=== PATIENT | male | born 1960 | race Caucasian/White ===

== ENCOUNTER 2016-12-06 16:25 | Inpatient (IN) | payer OTHER ==
--- NOTE | ~2016-12-06 | A ---
[facility] Nutrition Therapy DATE: 12/07/16 Patient: YADIEL ANGELES Physician: BEKAH Address: [address] [place] [address] Room/Bed: [address] [place] [address], Zip: [place] [address] Admit Date: 12/06/16 Date of : 64 Height: 5 10 Weight: 162 73.6 NUTRITIONAL ASSESSMENT: REASON: 1 nutrition risk pt RE: eating poorly 56 y/o male admitted for hyponatremia PMH: alcohol abuse, pancreatitis, peptic ulcer disease Anthropometrics: Ht: 5'10" Wt: 73.6 kg (162#) BMI: 23.3 Labs: Na+ 125, K+ 2.7, Cl- 87, BUN 7, Ca++ 8.3, Mg++ 1.0, Lip 105 Meds: Protonix, Zofran, Mg, K, D5%, Thiamine, Folvite, MVI I/O & Bowel function: 960/1, last BM 12/04 Skin Integrity: Bruise (AMANDA eye, L hip), no edema noted Assessment: Chart reviewed, events noted. Visited with pt, pt had just woken up and seemed slightly confused. Pt reported 20# wt loss in 3 months, but has been gaining wt back. Pt reports having good appetite while here, unsure if pt consumed breakfast as he reported to RN that he did, and to RD that he did not. Pt did not want to try supplements. Pt had no diet questions. Dx: Unintended weight loss RT previously poor appetite, PMH AEB 20# wt loss. Intervention: 1. Healthy heart diet Monitoring, Evaluation and Goals: 1. Weight; prevent unintentional weight loss 2. Labs; WNL: electrolytes Recommendations: 1. Continue healthy heart diet. 2. Appreciate family and staff to encourage adequate intake. 3. Replete electrolytes to WNL. Pt is at a mild nutritional risk. RD will f/u per protocol. [facility] Nutrition Therapy DATE: 12/07/16 Patient: YADIEL ANGELES Physician: BEKAH Address: [facility] Room/Bed: [address] [place] [address], Zip: [place] [address] Admit Date: 12/06/16 Date of : [birth year] Height: 5 10 Weight: 162 73.6 Respectfully, Mariola Blanco, Digital Archivist Obdulia Valdez RD, LD Food and Nutritional Services [facility] cc: client file
--- NOTE | ~2016-12-06 | HP ---
Unit #: [id number] #: [id number] Patient: YDAIEL ANGELES [id number] [facility] [address] [facility]. [place], [place] [address] [id number] I MR#: [id number] NAME: YADIEL ANGELES. ROOM: 311 Age: 56 Sex: M Admission Date: 12/06/2016 : 1960 Referring Physician: Aleida Centeno M.D. Primary Care Physician: Dejuan Guevara M.D. HISTORY AND PHYSICAL CHIEF COMPLAINT Alcohol abuse, depression. HISTORY OF PRESENT ILLNESS The patient is a 56-year-old male with a past medical history of alcohol abuse, pancreatitis, and peptic ulcer disease, who presented to [facility] for evaluation of the above. 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 He was told to go to the emergency department for further evaluation due to "walking funny." Upon arrival in the emergency department at [facility], the patient's pulse was 123, blood pressure 139/103, and oxygen saturation 99% on room air. Laboratory was notable for a sodium of 125 and potassium of 2.1. Platelets are 66,000. He was given one liter of normal saline, as well as thiamine, folic acid, and multivitamin. Additionally, he received two grams of magnesium, 60 mEq of potassium, and Protonix 40 mg IV x1. The patient states that he has had a one-week history of increasing generalized weakness, productive cough, and decreased appetite. He states that he has had intermittent chest pain. He has also been intermittently short of breath. He reports crampy abdominal pain that has been intermittent in nature. He has had one bout of nonbloody emesis within the past 24 hours, as well as five to six bouts of nonbloody diarrhea. He states that his last drink was on the day prior to admission. He typically drinks a pint of vodka daily. He was transferred to [facility] for admission. PAST MEDICAL HISTORY 1. Admission to [facility] July 13-2015, for generalized weakness and alcohol withdrawal. He was in the ICU for IV Ativan. 2. Pancreatitis. 3. Peptic ulcer disease. PAST SURGICAL HISTORY Exploratory laparotomy. SOCIAL HISTORY The patient smokes a half pack of cigarettes daily. He drinks a pint of vodka daily. He works in maintenance at [employer]. His code status is a Full Code. FAMILY HISTORY Notable for his dad dying of colon cancer at the age of 59. His mother is Unit #: [id number] #: [id number] Patient: YADIEL ANGELES 86 and has arthritis. ALLERGIES No known allergies. HOME MEDICATIONS Nexium 20 mg daily. REVIEW OF SYSTEMS A complete review of systems is negative except as indicated in the History of Present Illness. The patient states that he has lost about 23 pounds over the past three months. The patient denies any suicidal or homicidal ideations. He was tearful when discussing today's date which happens to be his granddaughter's birthday. He is currently estranged from some family members. PHYSICAL EXAMINATION VITAL SIGNS: Temperature is 97.6, pulse 123, respirations 16, and blood pressure 139/103. GENERAL: Patient is a male who is awake, alert, and in no acute distress. HEENT: Head is atraumatic. Mucous membranes are moist. NECK: Supple. Trachea is midline. CARDIOVASCULAR: Regular rate and rhythm. LUNGS: Clear to auscultation bilaterally with no increased work of breathing. ABDOMEN: Soft and nontender with bowel sounds present in all four quadrants. EXTREMITIES: Nontender with no pedal edema. NEUROLOGIC: Patient is awake and alert. He follows commands. He is oriented x3. PSYCHIATRIC: Mood and affect are normal. Patient is somewhat tearful. SKIN: Skin of examined areas is warm and dry. DIAGNOSTIC STUDIES LABORATORY: Troponin is less than 0.05. Comprehensive metabolic panel notable for a sodium of 125, potassium 2.1, chloride 77, bicarb 34, glucose 126, BUN and creatinine 6 and 0.7, respectively, AST 102, alkaline phosphatase 242, and total bilirubin 3.8 with a 1.2 direct and 2.6 indirect. Lipase is 72. Alcohol level is less than 5. Complete blood count notable for platelets of 66,000. CARDIOLOGY: EKG shows sinus tachycardia with a rate of 108 beats per minute. ASSESSMENT The patient is a 56-year-old male with: 1. Hyponatremia likely secondary to dehydration and decreased oral intake, as well as alcohol abuse. The patient's sodium has been as low as 125 in the past (July 17, 2016). It is 125 today. 2. Hypokalemia. The patient received 60 mEq of potassium in the emergency department. 3. Alcohol withdrawal. The patient's last drink was on the day prior to admission. He drinks a pint of vodka daily. 4. Chest pain. Initial cardiac enzymes and EKG are negative. 5. Abdominal pain. 6. History of pancreatitis. The patient's lipase is 72 today. 7. Peptic ulcer disease. Unit #: [id number] #: [id number] Patient: YADIEL ANGELES 8. Tobacco abuse. 9. Thrombocytopenia. The patient's platelets have been as low as 20,000 on May 06, 2016. Platelets are 66,000 today. PLAN 1. Admit to intermediate level. 2. Healthy heart diet if passes bedside swallow. 3. Urine sodium and osmolality. 4. Serum osmolality. 5. Repeat BMP later this evening to follow up hyponatremia. 6. Chest x-ray for further evaluation of hyponatremia. 7. Check magnesium level. 8. Potassium/magnesium protocol. 9. Flatwork Supervisor/Social Work consult regarding alcohol abuse. 10. Librium 25 mg p.o. q.6 hours with first dose now. 11. Alcohol withdrawal protocol. 12. Serial cardiac enzymes. 13. P.r.n. Zofran. 14. Repeat labs in the morning including magnesium and lipase. 15. SCDs for DVT prophylaxis. 16. Additional workup and consultants based on above. 17. Regarding code status, the patient is a Full Code. 1. Dictated by [facility]/santino TD: 12/06/2016 17:23 JOB #: [id number] HISTORY AND PHYSICAL Page 1 of 1 X Aleida Centeno MD X HISTORY AND PHYSICAL
--- NOTE | ~2016-12-06 | CR63 ---
[facility] A Service of [facility] & [facility] RADIOLOGY TEXT RESULTS PATIENT: YADIEL ANGELES LOCATION: [facility] 311- : [birth year] UNIT #: [id number] AGE: [address]: Linda Jorgensen MD SEX: M ORDER DR: [id number] [facility] [address] [facility]. [place], [place] [address] [id number] I MR#: [id number] Acc #: [id number] NAME: YADIEL ANGELES. : 1960 SEX: M STUDY DATE/TIME: 12/06/2016 17:18 UNIT: [address] ROOM: [facility] STUDY DESCRIPTION: CR Chest 2 View Attending Physician: Janny Thao Family Referring Physician: Aleida Centeno M.D. Ordering Physician: Aleida Centeno M.D. Primary Care Physician: Dejuan Guevara M.D. MEDICAL IMAGING REPORT This report is preliminary unless electronic signature is present EXAM 2 views chest, 12/06/2016 HISTORY Shortness of air. Began today. Chest pain. FINDINGS PA and lateral radiographs of the chest are presented. Comparison 05/07/2016. No acute-appearing bony abnormality. The heart mediastinum normal in size and contour. The lungs are moderately well inflated. There is no evidence of acute infectious or inflammatory disease, pleural effusion or pneumothorax. No suspicious nodule. Dictated by... Devyn Hernandez M.D. THIS IS AN ELECTRONICALLY VERIFIED REPORT Devyn Hernandez M.D. at 12/07/2016 6:04 PM VALERIE/norma TD: 12/07/2016 06:02 JOB #: [id number] MEDICAL IMAGING REPORT Page 1 of 1 COPY
--- NOTE | ~2016-12-06 | DS ---
Unit #: [id number] #: [id number] Patient: YADIEL RAY [id number] [address] [place], [place] [address] [id number] I MR#: [id number] NAME: YADIEL RAY. ROOM: 311 Age: 56 Sex: M Admission Date: 12/06/2016 : 1960 Discharge Date: 12/07/2016 Attending Physician: Linda Jorgensen M.D. Referring Physician: Aleida Centeno M.D. Primary Care Physician: Dejuan Guevara M.D. DISCHARGE SUMMARY PRIMARY CARE PHYSICIAN Dejuan Guevara M.D. PRINCIPAL DIAGNOSES 1. Hyponatremia secondary to poor solute intake. 2. Acute alcohol withdrawal. 3. Severe hypokalemia. 4. Hypomagnesemia. 5. Hypophosphatemia. 6. Chronic alcohol abuse. 7. Chronic alcoholic pancreatitis. 8. Alcohol induced thrombocytopenia. 9. Tobaccoism. CONSULTANTS None. PROCEDURES Chest x-ray on 12/06/2016 with no acute findings. CLINICAL HISTORY AND HOSPITAL COURSE Mr. Ray is a 56-year-old male, who presents to the emergency department with increasing depression. He presented with cough and weakness. In the emergency department, he was found to be hyponatremic with a sodium level of 125. He was subsequently admitted. The patient was placed on IV fluids and sodium initially improved. IV fluids were discontinued. He was placed on salt tablets. Followup blood work was ordered, but was not done. The patient was also found to be significantly hypokalemic again secondary to poor intake of solute secondary to his alcohol abuse. This was supplemented as much as possible for the patient left AMA. The patient was placed on CIWA protocol in regard to alcohol abuse. He was having minimal signs of withdrawal when he left AMA. I will also note he is also on scheduled Librium and had been evaluated by [facility], who suggested outpatient treatment. The patient was in the process of having his electrolytes corrected when he left the hospital against medical advice. No prescriptions were given. Unit #: [id number] #: [id number] Patient: YADIEL RAY Dictated by... Linda Jorgensen M.D. [facility]/natalia TD: 12/08/2016 05:09 JOB #: [id number] DISCHARGE SUMMARY Page 1 of 1 X Linda Jorgensen MD X DISCHARGE SUMMARY
[~2016-12-06 16:25] MED LIST changes: -B-1100 MG PO; -FOLIC ACID1 MG PO; -HYDROCODON-ACE1 EAC9 PO; -K-DUR20 ME1 PO; -MAG-OX 400400 M1 PO; -MULTI-VITAMIN1 EAC1 PO; -NEXIUM20 MG PO; -NICOTINE TRANSD14 MG TOP; -NORVASC PO; -PROTONIX40 M1; -SODIUM CHLORIDE1 GM PO; -THIAMINE HCL100 M1 PO
[2016-12-06 17:25] LABS: ALBUMIN SERUM 3.3 g/dL (3.5-5.0); BILIRUBIN,TOTAL 2.8 mg/dL (0.2-2.0); BUN/CREATININE RATIO 8.57; CALCIUM SERUM 8.2 mg/dL (8.4-10.2); CREATININE SERUM 0.7 mg/dL (0.6-1.4); PROTEIN TOTAL SERUM 6.3 g/dL (6.0-8.3)
[2016-12-06 17:30] LABS: POTASSIUM 2.9 mmol/L (3.5-5.1)
[2016-12-06 17:49] LABS: %MB 1.1 % (0.0-4.0); MB 1.7 ng/ml
[2016-12-06 18:23] LABS: THYROID STIMULATING HORMONE 2.14 uIU/ml (0.34-5.60)
[2016-12-06 18:32] LABS: FREE THYROXIN (T4) 1.01 ng/dL (0.58-1.64)
[2016-12-06 19:05] LABS: CALCIUM SERUM 8.3 mg/dL (8.4-10.2); CREATININE SERUM 0.7 mg/dL (0.6-1.4)
[2016-12-06 19:12] LABS: POTASSIUM 2.7 mmol/L (3.5-5.1)
[2016-12-06 23:22] LABS: %MB 0.9 % (0.0-4.0); MB 1.3 ng/ml
[2016-12-07 01:21] LABS: URINE APPEARANCE CLEAR; URINE BLOOD NEG (NEG); URINE COLOR DK YELLOW; URINE GLUCOSE NEG (NEG); URINE KETONE TRACE (NEG); URINE LEUKOCYTE ESTERASE 1+ (NEG); URINE NITRATE POS (NEG); URINE PH 6.5 (5-8); URINE PROTEIN TRACE (NEG); URINE SPECIFIC GRAVITY 1.028 (1.003-1.035); URINE UROBILINOGEN >8.0 MG/DL (NEG)
[2016-12-07 01:24] LABS: SODIUM URINE RANDOM 65 mmol/L; URINE BACTERIA AUWI NEG (NEGATIVE); URINE SQUAMOUS EPITHELIAL CELL OCC /[HPF]
[2016-12-07 01:33] LABS: URINE BILIRUBIN POS (NEG)
[2016-12-07 03:08] LABS: OSMOLALITY,URINE 697 mOsmo/kg (250-900)
[2016-12-07 07:33] LABS: MEAN CELL VOLUME 94.7 FL (83-96); MEAN CORPUSCULAR HEMOGLOBIN 31.6 PG (28-34); MEAN CORPUSCULAR HGB CONC 33.4 g/dL (30-36); MEAN PLATELET VOLUME 8.5 FL (6.5-11.5); RED BLOOD COUNT 3.48 X10e (3.90-5.60); RED CELL DISTRIBUTION WIDTH 16.4 % (11.0-15.5); WHITE BLOOD COUNT 3.9 X10e3 (4.0-10.5)
[2016-12-07 08:13] LABS: ALBUMIN SERUM 2.9 g/dL (3.5-5.0); BILIRUBIN,TOTAL 1.4 mg/dL (0.2-2.0); CALCIUM SERUM 8.3 mg/dL (8.4-10.2); CREATININE SERUM 0.7 mg/dL (0.6-1.4); PROTEIN TOTAL SERUM 5.4 g/dL (6.0-8.3)
[2016-12-07 08:19] LABS: POTASSIUM 2.7 mmol/L (3.5-5.1)
== END 2016-12-07 13:45 | disposition left against medical advice (07) | DRG 894 ==
LOC: C3A PCU 16:25
PROVIDERS: Family Medicine
DX: F10.239 Alcohol dependence with withdrawal, unspecified (principal); E87.1 Hypo-osmolality and hyponatremia; I10 Essential (primary) hypertension; K86.1 Other chronic pancreatitis; E87.6 Hypokalemia; F17.210 Nicotine dependence, cigarettes, uncomplicated; K21.9 Gastro-esophageal reflux disease without esophagitis
CPT/HCPCS: 71020; 80048; 80053; 81003; 82550; 82553; 83690; 83735; 83930; 83935; 84100; 84300; 84439; 84443; 84484; 85027; 86592; 87806; J3411; J3475; J7042

== ENCOUNTER → 2016-12-06 | Emergency (ER) | payer OTHER ==
[~2016-12-06] MED LIST: ACETAMINOPHEN PO; AL-MAG HYDROX-S30 M1 PO; ATIVAN PO; B-1100 MG PO; BACTRIM DS TABL1 TA1 PO; BACTRIM DS TABL1 TA2 PO; BENADRYL25 MG PO; BENICAR PO; COZAAR25 MG PO; DICYCLOMINE HCL20 MG PO; FAMOTIDINE PO; FOLIC ACID1 MG PO; HYDROCODON-ACE1 EAC9 PO; HYDROCODONE-APA1 T44 PO; K-DUR20 ME1 PO; KETOPROFEN50 MG PO; LEVAQUIN PO; LIBRIUM25 M1 PO; LORTAB 5/500 TA1 TA1 PO; LOSARTAN POTASS50 MG PO; MAG-OX 400400 M1 PO; MEDROL DOSEPAK4 MG PO; MOBIC PO; MULTI VITAMIN1 EACH PO; MULTI-VITAMIN1 EAC1 PO; MULTIVITAMINS1 EAC2 PO; NASONEX17 GM; NEURONTIN300 MG PO; NEXIUM; NEXIUM PO; NEXIUM20 MG PO; NICOTINE TRANSD14 MG TOP; NORCO1 TAB 10/3 PO; NORVASC PO; OMEPRAZOLE20 M2 PO; PEPCID PO; PHENERGAN25 M1 PO; PHENERGAN25 MG PO; POTASSIUM20 MEQ/PKT PO; PROTONIX20 MG PO; PROTONIX40 M1; SIMVASTATIN10 MG PO; SIMVASTATIN20 MG PO; SODIUM CHLORIDE1 GM PO; THIAMINE HCL100 M1 PO; TOBREX5 ML OP; ULTRAM PO; VIAGRA50 MG PO; ZADITOR5 M1 OP; ZANAFLEX4 M1 PO; ZOFRAN ODT4 MG PO; ZOFRAN ODT4 MG/UDTAB PO; ZOFRAN PO; ZYRTEC PO; ZYRTEC5 M2 PO
--- NOTE | ~2016-12-06 | EKG ---
PATIENT: YADIEL ANGELES UNIT #: [id number] Ventricular Rate: 108 BPM Atrial Rate: 108 BPM P-R Interval: 148 ms QRS Duration: 80 ms Q-T Interval: 404 ms QTC Calculation(Bezet): 541 ms P [place]: 48 degrees Calculated R [place]: 55 degrees Calculated T [place]: 58 degrees Diagnosis Line: Sinus tachycardia Diagnosis Line: Otherwise normal ECG Diagnosis Line: When compared with ECG of 08-MAY-2016 19:07, Diagnosis Line: QT has lengthened Diagnosis Line: Confirmed by JESSICA DIXON MD ([id number]) on 12/06/2016 Diagnosis Line: 11:12:47 PM INTERPRETING MD: DESTINY BANSAL
[2016-12-06 09:16] LABS: BASOPHIL% 0.6 % (0-2.5); EOSINOPHIL# 0.1 X10e3 (0-0.7); EOSINOPHIL% 1.1 % (0.0-7.0); HEMATOCRIT 43.7 % (38.0-50.0); LYMPHOCYTE# 1.5 X10e3 (1.0-3.5); LYMPHOCYTE% 28.5 % (17.0-45.0); MEAN CELL VOLUME 92.8 FL (83-96); MEAN CORPUSCULAR HEMOGLOBIN 31.9 PG (28-34); MEAN CORPUSCULAR HGB CONC 34.4 g/dL (30-36); MEAN PLATELET VOLUME 8.2 FL (6.5-11.5); MONOCYTE# 0.5 X10e3 (0-1.0); MONOCYTE% 9.1 % (3.0-12.0); NEUTROPHIL# 3.1 X10e3 (1.5-7.1); NEUTROPHIL% 60.7 % (40-75); RED BLOOD COUNT 4.71 X10e (3.90-5.60); RED CELL DISTRIBUTION WIDTH 16.6 % (11.0-15.5); WHITE BLOOD COUNT 5.2 X10e3 (4.0-10.5)
[2016-12-06 09:29] LABS: POC - CKMB <1.0 ng/mL (0.0-7.9); POC - TROPONIN <0.05 ng/mL (<=0.05)
[2016-12-06 09:42] LABS: ALBUMIN SERUM 3.8 g/dL (3.5-5.0); ALKALINE PHOSPHATASE 242 U/L (32-92); ALT (SGPT) 37 U/L (10-40); AST (SGOT) 102 U/L (10-42); BILIRUBIN, DIRECT 1.2 mg/dL (0.0-0.2); BILIRUBIN,INDIRECT 2.6 mg/dL (0.0-0.9); BILIRUBIN,TOTAL 3.8 mg/dL (0.2-2.0); BLOOD UREA NITROGEN 6 mg/dL (9-23); BUN/CREATININE RATIO 8.57; CALCIUM SERUM 8.7 mg/dL (8.4-10.2); CARBON DIOXIDE 34 mmol/L (22-31); CHLORIDE 77 mmol/L (100-111); CREATININE SERUM 0.7 mg/dL (0.6-1.4); GLUCOSE FASTING 126 mg/dL (70-110); LIPASE 72 U/L (22-51); PROTEIN TOTAL SERUM 7.2 g/dL (6.0-8.3)
[2016-12-06 09:54] LABS: ALCOHOL BLOOD <5 mg/dL (0); POTASSIUM 2.1 mmol/L (3.5-5.1)
[2016-12-06 09:56] LABS: SODIUM 125 mmol/L (135-145)
[2016-12-06 10:06] LABS: DIFF IND NO; PLATELET COUNT 66 X10e3 (140-420)
== END | disposition home or self-care (01) ==
LOC: CED 08:21
PROVIDERS: Emergency Medicine
DX: R10.11 Right upper quadrant pain (principal); E87.1 Hypo-osmolality and hyponatremia; E87.6 Hypokalemia; R07.9 Chest pain, unspecified; F32.9 Major depressive disorder, single episode, unspecified; F10.20 Alcohol dependence, uncomplicated; F17.200 Nicotine dependence, unspecified, uncomplicated
CPT/HCPCS: 36415; 80048; 80076; 82553; 83690; 83874; 84484; 85025; 93005; 96374; 96375; 99285; C9113; G0480; J3475

== ENCOUNTER 2016-12-24 22:40 | Inpatient (IN) | payer OTHER ==
--- NOTE | ~2016-12-24 | CR63 ---
[facility] A Service of [facility] & [facility] RADIOLOGY TEXT RESULTS PATIENT: YADIEL ANGELES LOCATION: [facility] 305-01 : [birth year] UNIT #: [id number] AGE: [address]: Miguel Little MD SEX: M ORDER DR: [id number] [facility] [address] [facility]. [place], [place] [address] [id number] I MR#: [id number] Acc #: [id number] NAME: YADIEL ANGELES. : 1960 SEX: M STUDY DATE/TIME: 12/24/2016 23:19 UNIT: CEDOF ROOM: 44426 STUDY DESCRIPTION: CR Chest 2 View Attending Physician: Miguel Little M.D. Ordering Physician: Ramsey Samuels Aprn Primary Care Physician: No Primary Care Physician MEDICAL IMAGING REPORT This report is preliminary unless electronic signature is present EXAM PA and lateral chest. INDICATIONS Cough and chills and weakness for 2 months. COMPARISON 12/06/2016 FINDINGS PA and lateral examination of the chest upright shows a good expansion of the parenchyma with a normal distribution of the pulmonary vascularity. There is no indication of congestion, effusion, infiltrate, tumor, or nodular density. The pleural reflections and diaphragmatic contours are normal. The cardiac silhouette and mediastinal anatomy is within normal limits. IMPRESSION Normal chest. Dictated by... Vitaly Connell M.D. THIS IS AN ELECTRONICALLY VERIFIED REPORT Vitaly Connell M.D. at 12/25/2016 8:04 PM Berenice TD: 12/25/2016 14:19 JOB #: [id number] MEDICAL IMAGING REPORT Page 1 of 1 COPY
--- NOTE | ~2016-12-24 | CO ---
Unit #: [id number] #: [id number] Patient: LEONIDES RAY [id number] [facility] [address] [facility]. [place], [place] [address] [id number] I MR#: [id number] NAME: LEONIDES RAY ROOM: 305 Age: 56 Sex: M Admission Date: 12/25/2016 : 1960 Attending Physician: Nara Grimm M.D. Consultation Date: 12/27/2016 CONSULTATION REPORT REASON FOR CONSULTATION Alcohol withdrawal, alcohol abuse. HISTORY OF PRESENT ILLNESS Mr. Leonides Ray is a 56-year-old white male, seen in room 305, bed 1 on 3-A at [facility] on 12/27/2016. The patient reported that he was here for alcohol withdrawals, admitted on 12/25/2016. The patient dressed casually in hospital attire, lying comfortably. The patient currently denied any suicidal or homicidal ideation. Denied any psychotic symptom. The patient's vital signs stable; temperature 96.7, pulse 94, blood pressure 125/86, oxygen saturation 100%. The patient was admitted with alcohol abuse, history of pancreatitis. The patient was recently hospitalized and left AMA. The patient denied any other complaints. Denied any depressive symptom. PAST PSYCHIATRIC HISTORY Remarkable for history of alcohol abuse. Denied any use of any drugs. Drinks a pint of vodka daily. The patient smokes 1/2 pack of cigarettes daily. MEDICATION HISTORY The patient is currently on Librium and CIWA protocol. Please refer to [facility] for detail. FAMILY HISTORY AND SOCIAL HISTORY The patient has a good support system. No history of any abuse. No history of alcohol abuse as mentioned above. REVIEW OF SYSTEMS Complete review of system is remarkable for anxiety, nervousness, hand tremors. MENTAL STATUS EXAMINATION Vital signs, please see above. General appearance, the patient dressed casually in hospital attire. Attention span and concentration, fair. Speech, regular rate and coherent. Oriented in time, place, and person. Mood and affect were sad, dysphoric, anxious. Thought process, coherent. Thought content, the patient denied any thoughts of harming self or others or any psychotic symptom. Recent and remote memory, fair. Language, able to name object and repeat phrases. Fund of knowledge, fair. Insight and judgment, fair to slightly impaired. DIAGNOSES Psychiatric: Alcohol use disorder, severe, F10.20; mood disorder, not Unit #: [id number] #: [id number] Patient: LEONIDES RAY E otherwise specified, F32.9. Secondary diagnosis: Deferred. Medical diagnosis: Please refer to H and P. Stressors: Psychosocial stressor. ASSESSMENT/PLAN 1. Supportive psychotherapy and psychoeducation provided to the patient. 2. Educated about benefits and side effects of medication and course and prognosis of illness. 3. Advised to continue with CIWA protocol. We will continue to monitor. If needed, consider further adjustment of medication. 4. The patient was given information about [facility]-IOP program and also given crisis line #[phone]. Please feel free to call if any questions, telephone #[phone]. Dictated by... Casa Khalil/natalia TD: 12/27/2016 23:46 JOB #: [id number] CONSULTATION REPORT Page 1 of 1 X Jamie Arriola MD CONSULTATION REPORT
--- NOTE | ~2016-12-24 | HP ---
Unit #: [id number] #: [id number] Patient: YADIEL ANGELES [id number] [address] [place], [place] [address] [id number] I MR#: [id number] NAME: YADIEL ANGELES. ROOM: 28056 Age: 56 Sex: M Admission Date: 12/25/2016 : 1960 Attending Physician: Miguel Little M.D. Primary Care Physician: Primary Care Physician No HISTORY AND PHYSICAL CHIEF COMPLAINT Body ache, abdominal pain and chills. HISTORY OF PRESENT ILLNESS The patient is 56-year-old male with the past medical history of alcohol abuse, pancreatitis and peptic ulcer disease, presented to the emergency room complaining of the above symptoms since Tuesday. The patient stated the patient has not had alcohol since last Tuesday. The patient was recently seen in the hospital on 12/06/2016 and left AMA on the next day stating due to the pain medications. However, the patient stated that he wants to stay at this time and follow with the treatment protocol. The patient was found to have a severe hyponatremia and hypokalemia with a sodium of 125 and potassium of 2.8. The patient is being admitted for the above reasons. The patient also complains of nausea, vomiting and diarrhea since Tuesday. PAST MEDICAL HISTORY 1. History of generalized weakness and alcohol withdrawal. 2. Pancreatitis. 3. Peptic ulcer disease. PAST SURGICAL HISTORY Exploratory laparotomy. HOME MEDICATIONS Nexium 20 mg daily. ALLERGIES No known drug allergies. SOCIAL HISTORY The patient smokes one-half pack of cigarettes daily. He drinks a pint of vodka daily. 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 FAMILY HISTORY Notable for his father dying from colon cancer at age 59. His mother is 84 and has arthritis. REVIEW OF SYSTEMS A 14-point review of systems performed and only pertinent positive findings as described above, remaining are negative. PHYSICAL EXAMINATION VITAL SIGNS: Temperature 98.4, pulse 96, respiratory rate 16, blood Unit #: [id number] #: [id number] Patient: YADIEL ANGELES pressure 126/82. GENERAL: Patient is lying on the bed not in acute distress. HEENT: Atraumatic, normocephalic. Pupils equal, round, and reactive to light and accommodation. Extraocular movements are intact. Dry mucous membrane. NECK: Supple. No JVD. LUNGS: Decreased air entry at the bases. HEART: Regular rate and rhythm. ABDOMEN: Soft, positive bowel sounds. EXTREMITIES: No cyanosis, no clubbing. NEUROLOGIC: The patient has a fine tremor shakes a bit at rest. DIAGNOSTIC STUDIES LABORATORY: Glucose 85, BUN less than 5, creatinine 0.6, sodium 125, potassium 2.8, chloride 85, bicarb 26, calcium 7.9, phosphorus 2, magnesium 1, AST 75, ALT 33, alkaline phosphatase 137. Lipase 105. WBC 5.4, hemoglobin 14.6, hematocrit 43.1, platelets 62. ASSESSMENT AND PLAN 1. Alcohol withdrawal. 2. Hypokalemia. 3. Hyponatremia. PLAN 1. Admit patient to inpatient with telemetry. 2. Patient will continue with IV fluids at 75 mL per hour with 20 mEq of potassium. 3. Continue with 2-gram sodium diet. 4. Continue with CIWA protocol and continue with folic acid and thiamine. 5. Will have the psychiatric consult for the detoxification. 6. Further recommendations will follow as more lab results become available. Dictated by Casa Fuentes TD: 12/25/2016 14:33 JOB #: [id number] HISTORY AND PHYSICAL Page 1 of 1 X X HISTORY AND PHYSICAL
--- NOTE | ~2016-12-24 | EKG ---
PATIENT: YADIEL ANGELES UNIT #: [id number] Ventricular Rate: 104 BPM Atrial Rate: 104 BPM P-R Interval: 150 ms QRS Duration: 70 ms Q-T Interval: 404 ms QTC Calculation(Bezet): 531 ms P [place]: 65 degrees Calculated R [place]: 69 degrees Calculated T [place]: 69 degrees Diagnosis Line: Sinus tachycardia Diagnosis Line: Poor R wave progression questionable lead position Diagnosis Line: or body habitus Diagnosis Line: Prolonged QT Diagnosis Line: Abnormal ECG Diagnosis Line: When compared with ECG of 06-DEC-2016 08:57, Diagnosis Line: Septal infarct is now Present Diagnosis Line: Confirmed by YAYO NIEVES MD ([id number]) on 12/26/2016 Diagnosis Line: 7:11:22 AM INTERPRETING MD: LIZBETH BANSAL
--- NOTE | ~2016-12-24 | DS ---
Unit #: [id number] #: [id number] Patient: YADIEL ANGELES [id number] [address] [place], [place] [address] [id number] I MR#: [id number] NAME: YADIEL ANGELES. ROOM: 305 Age: 56 Sex: M Admission Date: 12/25/2016 : 1960 Discharge Date: Attending Physician: Nara Grimm M.D. Primary Care Physician: No Primary Care Physician DISCHARGE SUMMARY DISCHARGE DIAGNOSES 1. Acute alcohol dependence with alcohol withdrawal and delirium tremens. 2. Severe hyponatremia, acute on chronic secondary to alcohol abuse. 3. Hypokalemia. 4. Hypomagnesemia. 5. Confusion, occasionally, most likely secondary to alcohol, toxic metabolic encephalopathy present on admission. 6. According to family, has chronic occasional confusion. 7. Chronic alcohol hepatitis. 8. Alcohol induced thrombocytopenia. 9. Smoking. 10. Hyperphosphatemia. CONSULTANTS Dr. Arriola. PROCEDURES None. DIAGNOSTIC STUDIES LABORATORY DATA: Sodium 124, potassium 4.0, creatinine 0.5, magnesium 1.4, calcium 8.5, blood cultures negative. WBC 5.7, hemoglobin 12.1, platelets 50. IMAGING STUDIES: Chest x-ray - no acute infiltrates. ALLERGIES None. DISCHARGE MEDICATIONS 1. Magnesium oxide 400 mg p.o. 3 times daily. 2. Thiamine 100 daily. 3. Folic acid 1 mg daily. 4. Sodium tablets 1 g p.o. 3 times daily. HOSPITAL COURSE 56-year-old admitted because of body pains. Acute alcohol dependent with withdrawal and delirium tremens: Patient was started on alcohol withdrawal protocol. He was on Librium. Currently he is not in delirium tremens. He is being discharged. Confusion: Occasional, secondary to toxic metabolic encephalopathy from Unit #: [id number] #: [id number] Patient: YADIEL ANGELES alcohol. Advised to quit. He understands the instructions, present on admission. Acute on chronic hyponatremia from alcohol. Patient received fluid restriction and sodium tablets. Currently sodium 124, which is chronically low. Hypomagnesium: Replace with IV and p.o. magnesium. I will give prescription. Hypokalemia: Replace with p.o. potassium. Discharge home after IV magnesium today. Follow with family physician in one week time. Dictated by... Casa Estrada TD: 12/29/2016 12:06 JOB #: [id number] DISCHARGE SUMMARY Page 1 of 1 X Nara Grimm MD X DISCHARGE SUMMARY
--- NOTE | ~2016-12-24 | CO ---
Unit #: [id number] #: [id number] Patient: LEONIDES ANGELES [id number] [facility] [address] [place], [place] [address] [id number] I MR#: [id number] NAME: LEONIDES ANGELES ROOM: 305 Age: 56 Sex: M Admission Date: 12/25/2016 : 1960 Attending Physician: Nara Grimm M.D. Consultation Date: 12/28/2016 CONSULTATION REPORT REASON FOR CONSULTATION Followup. HISTORY OF PRESENT ILLNESS Mr. Leonides Angeles is a 56-year-old male, seen on 12/28/2016 in room 305, bed 1 at [facility]. The patient is still having withdrawal from alcohol, anxious, nervous, but reports feeling better. The patient currently denied any suicidal or homicidal ideation. Denied any psychotic symptom. The patient's vital signs; temperature 98.1, pulse 100, respirations 20, blood pressure 122/86, and oxygen saturation 100%. REVIEW OF SYSTEMS Complete review of systems is unremarkable. MENTAL STATUS EXAMINATION General appearance; the patient dressed casually. Attention span and concentration, fair. Speech; regular rate, coherent. Mood and affect, labile. Thought process, circumstantial. Thought content; the patient denied any thoughts of harming self or others. Recent and remote memory, fair. Language, intact. Fund of knowledge, fair. Insight and judgment, fair to slightly impaired. DIAGNOSES Psychiatric: Alcohol use disorder, severe, F10.20; mood disorder, not otherwise specified, F32.9. ASSESSMENT AND PLAN 1. Supportive psychotherapy and psychoeducation were provided to the patient. 2. Educated about benefits and side effects of medication and course and prognosis of illness. 3. Advised to continue with current [facility] protocol with a plan for the patient to follow up at [facility] after the patient is medically stable. Please feel free to call if any questions, telephone #[phone]. Dictated by... Jamie Arriola M.D. TESHA/natalia TD: 12/30/2016 03:04 JOB #: [id number] Unit #: [id number] #: [id number] Patient: LEONIDES ANGELES CONSULTATION REPORT Page 1 of 1 X Jamie Arriola MD CONSULTATION REPORT
[2016-12-24 21:30] LABS: INFLUENZA A NEG (NEG); INFLUENZA B NEG (NEG)
[2016-12-24 23:48] LABS: BASOPHIL% 0.3 % (0-2.5); EOSINOPHIL% 0.3 % (0.0-7.0); HEMATOCRIT 43.1 % (38.0-50.0); HEMOGLOBIN 14.6 gm/dL (13.0-16.0); LYMPHOCYTE# 1.7 X10e3 (1.0-3.5); LYMPHOCYTE% 32.4 % (17.0-45.0); MEAN CORPUSCULAR HEMOGLOBIN 31.4 PG (28-34); MEAN CORPUSCULAR HGB CONC 33.8 g/dL (30-36); MEAN PLATELET VOLUME 7.7 FL (6.5-11.5); MONOCYTE# 0.5 X10e3 (0-1.0); MONOCYTE% 9.6 % (3.0-12.0); NEUTROPHIL# 3.1 X10e3 (1.5-7.1); NEUTROPHIL% 57.4 % (40-75); RED BLOOD COUNT 4.63 X10e (3.90-5.60); RED CELL DISTRIBUTION WIDTH 17.3 % (11.0-15.5); WHITE BLOOD COUNT 5.4 X10e3 (4.0-10.5)
[2016-12-24 23:59] LABS: DIFF IND YES; PLATELET COUNT 62 X10e3 (140-420)
[2016-12-25 00:01] LABS: ANISOCYTOSIS MOD; PLATELET ESTIMATE DECREASED (NORMAL)
[2016-12-25 00:22] LABS: CALCIUM SERUM 7.9 mg/dL (8.4-10.2); CARBON DIOXIDE 26 mmol/L (22-31); CHLORIDE 85 mmol/L (100-111); CREATININE SERUM 0.6 mg/dL (0.6-1.4); GLUCOSE FASTING 85 mg/dL (70-110)
[2016-12-25 00:35] LABS: BLOOD UREA NITROGEN <5 mg/dL (9-23); BUN/CREATININE RATIO 8.33; POTASSIUM 2.8 mmol/L (3.5-5.1); SODIUM 125 mmol/L (135-145)
[2016-12-25 00:56] LABS: ALBUMIN SERUM 3.4 g/dL (3.5-5.0); BILIRUBIN, DIRECT 0.5 mg/dL (0.0-0.2); BILIRUBIN,INDIRECT 1.4 mg/dL (0.0-0.9); BILIRUBIN,TOTAL 1.9 mg/dL (0.2-2.0); PROTEIN TOTAL SERUM 6.3 g/dL (6.0-8.3)
[2016-12-25 01:14] LABS: POC - CKMB <1.0 ng/mL (0.0-7.9); POC - TROPONIN <0.05 ng/mL (<=0.05)
[2016-12-25] MEDS ORDERED: NEXIUM PO (01:29)
[2016-12-25 13:11] LABS: CALCIUM SERUM 7.6 mg/dL (8.4-10.2); CARBON DIOXIDE 28 mmol/L (22-31); CHLORIDE 87 mmol/L (100-111); CREATININE SERUM 0.5 mg/dL (0.6-1.4); GLOM FILT RATE Estimated 122.9 mL/min (>60); GLUCOSE FASTING 100 mg/dL (70-110); POTASSIUM 3.5 mmol/L (3.5-5.1)
[2016-12-25 13:32] LABS: BLOOD UREA NITROGEN <5 mg/dL (9-23); MAGNESIUM 0.7 mg/dL (1.6-3.0); SODIUM 125 mmol/L (135-145)
[2016-12-26 06:12] LABS: MEAN CELL VOLUME 94.6 FL (83-96); MEAN CORPUSCULAR HEMOGLOBIN 31.2 PG (28-34); MEAN PLATELET VOLUME 8.2 FL (6.5-11.5); RED BLOOD COUNT 3.91 X10e (3.90-5.60); RED CELL DISTRIBUTION WIDTH 18.1 % (11.0-15.5); WHITE BLOOD COUNT 4.1 X10e3 (4.0-10.5)
[2016-12-26 06:15] LABS: HEMOGLOBIN 12.2 gm/dL (13.0-16.0)
[2016-12-26 06:49] LABS: CALCIUM SERUM 7.7 mg/dL (8.4-10.2); CARBON DIOXIDE 27 mmol/L (22-31); CHLORIDE 91 mmol/L (100-111); CREATININE SERUM 0.5 mg/dL (0.6-1.4); GLOM FILT RATE Estimated 122.9 mL/min (>60); GLUCOSE FASTING 114 mg/dL (70-110); MAGNESIUM 1.1 mg/dL (1.6-3.0); POTASSIUM 3.2 mmol/L (3.5-5.1); SODIUM 126 mmol/L (135-145)
[2016-12-26 06:55] LABS: BLOOD UREA NITROGEN <5 mg/dL (9-23)
[2016-12-27 06:17] LABS: BLOOD UREA NITROGEN <5 mg/dL (9-23); CALCIUM SERUM 7.5 mg/dL (8.4-10.2); CARBON DIOXIDE 22 mmol/L (22-31); CHLORIDE 99 mmol/L (100-111); CREATININE SERUM 0.5 mg/dL (0.6-1.4); GLOM FILT RATE Estimated 122.9 mL/min (>60); GLUCOSE FASTING 127 mg/dL (70-110); MAGNESIUM 1.4 mg/dL (1.6-3.0); POTASSIUM 3.7 mmol/L (3.5-5.1); SODIUM 126 mmol/L (135-145)
[2016-12-27 16:10] LABS: HEMATOCRIT 38.4 % (38.0-50.0); HEMOGLOBIN 12.6 gm/dL (13.0-16.0); MEAN CELL VOLUME 96.8 FL (83-96); MEAN CORPUSCULAR HEMOGLOBIN 31.9 PG (28-34); MEAN PLATELET VOLUME 8.6 FL (6.5-11.5); RED BLOOD COUNT 3.96 X10e (3.90-5.60); RED CELL DISTRIBUTION WIDTH 17.9 % (11.0-15.5); WHITE BLOOD COUNT 4.4 X10e3 (4.0-10.5)
[2016-12-28 05:53] LABS: HEMATOCRIT 36.2 % (38.0-50.0); HEMOGLOBIN 12.1 gm/dL (13.0-16.0); MEAN CELL VOLUME 94.7 FL (83-96); MEAN CORPUSCULAR HEMOGLOBIN 31.7 PG (28-34); MEAN CORPUSCULAR HGB CONC 33.5 g/dL (30-36); MEAN PLATELET VOLUME 8.1 FL (6.5-11.5); RED BLOOD COUNT 3.82 X10e (3.90-5.60); RED CELL DISTRIBUTION WIDTH 18.3 % (11.0-15.5); WHITE BLOOD COUNT 5.7 X10e3 (4.0-10.5)
[2016-12-28 07:22] LABS: BLOOD UREA NITROGEN <5 mg/dL (9-23); CALCIUM SERUM 8.1 mg/dL (8.4-10.2); CARBON DIOXIDE 23 mmol/L (22-31); CHLORIDE 96 mmol/L (100-111); CREATININE SERUM 0.4 mg/dL (0.6-1.4); GLOM FILT RATE Estimated 134.7 mL/min (>60); GLUCOSE FASTING 106 mg/dL (70-110); MAGNESIUM 1.6 mg/dL (1.6-3.0)
[2016-12-28 07:23] LABS: SODIUM 124 mmol/L (135-145)
[2016-12-29 07:05] LABS: CALCIUM SERUM 8.5 mg/dL (8.4-10.2); CREATININE SERUM 0.5 mg/dL (0.6-1.4); GLOM FILT RATE Estimated 122.9 mL/min (>60); MAGNESIUM 1.4 mg/dL (1.6-3.0)
[2016-12-29] MEDS ORDERED: MAG-OX 400400 M1 PO (11:27)
[2016-12-29] MEDS ORDERED: FOLIC ACID1 MG PO (11:28)
[2016-12-29] MEDS ORDERED: THIAMINE HCL100 M1 PO (11:28)
[2016-12-29] MEDS ORDERED: SODIUM CHLORIDE1 GM PO (11:28)
== END 2016-12-29 18:40 | disposition home or self-care (01) | DRG 896 ==
LOC: CED 22:40 → CEDOF 12-25 01:25 → C3A PCU 12-25 19:49
PROVIDERS: Internal Medicine; Nurse Practitioner Family
DX: F10.231 Alcohol dependence with withdrawal delirium (principal); G92 Toxic encephalopathy; D69.6 Thrombocytopenia, unspecified; E83.51 Hypocalcemia; E83.39 Other disorders of phosphorus metabolism; F39 Unspecified mood [affective] disorder; K70.10 Alcoholic hepatitis without ascites; E87.1 Hypo-osmolality and hyponatremia; K29.70 Gastritis, unspecified, without bleeding; E87.6 Hypokalemia; R11.2 Nausea with vomiting, unspecified; F17.210 Nicotine dependence, cigarettes, uncomplicated
CPT/HCPCS: 36415; 71020; 80048; 80076; 82553; 83735; 84132; 84484; 85025; 85027; 87040; 87651; 87804; 93005; 96361; 96374; 99285; J1885; J2405; J3411; J3475; J7042

== ENCOUNTER 2017-01-11 18:56 | Inpatient (IN) | payer OTHER ==
--- NOTE | ~2017-01-11 | HP ---
Unit #: [id number] #: [id number] Patient: YADIEL ANGELES [id number] [address] [place], [place] [address] [id number] MR#: [id number] NAME: YADIEL ANGELES. ROOM: Age: 56 Sex: M Admission Date: 01/11/2017 : 1960 Attending Physician: Rolan Thornton M.D. Primary Care Physician: No Primary Care Physician HISTORY AND PHYSICAL CHIEF COMPLAINT Nausea, vomiting, diarrhea with electrolytes abnormalities. HISTORY This 56-year-old male with history of alcohol abuse, peptic ulcer disease and pancreatitis, is admitted for nausea, vomiting, diarrhea and electrolyte abnormalities. Patient drinks a pint a day of alcohol, and his last drink was two days ago. States that over the past two days he has developed intractable dark diarrhea, then last evening began to experience nonbloody nausea and vomiting with chest and abdominal pain, sweats and chills. He presents to this emergency department where labs show hyponatremia and hypokalemia. He was bolused with a liter of saline, given Zofran, GI cocktail, 40 mEq of potassium. He is continuing to experience generalized abdominal discomfort, perhaps more so in the epigastric region. PAST MEDICAL HISTORY 1. Alcohol abuse with previous admissions for alcohol withdrawal. 2. History of pancreatitis. 3. Peptic ulcer disease requiring exploratory lap. ALLERGIES None. HOME MEDICATIONS Nexium. FAMILY HISTORY Colon cancer, arthritis. SOCIAL HISTORY The patient lives alone. He drinks one pint of liquor daily. His last drink was two days ago and he would like to stop drinking. He smokes one half pack per day of tobacco, denies illicit drug use. REVIEW OF SYSTEMS Review of systems is notable for nausea, vomiting, diarrhea, sweats, chills, abdominal and chest pain, alcohol abuse, pancreatitis, peptic ulcer disease, tobacco abuse and exploratory lap. All other systems were reviewed and otherwise negative. PHYSICAL EXAMINATION Unit #: [id number] #: [id number] Patient: YADIEL ANGELES GENERAL: A 56-year-old mildly uncomfortable male. VITAL SIGNS: Temperature 98. Pulse 127. Respirations 18. Blood pressure 140/79. O2 saturation 100% on room air. HEENT: Eyes PERRLAA, extraocular muscles are intact. Patient does have some horizontal nystagmus noted. Pharynx is benign. NECK: Supple, without adenopathy or thyromegaly. CHEST: Clear. CARDIAC: Slightly tachy S1 and S2, without murmur. ABDOMEN: Bowel sounds are present. The patient has mild generalized abdominal tenderness, perhaps more so in the epigastric region. Perhaps he has a little bit of hepatomegaly on exam as well. No masses. ANO-RECTAL EXAMINATION: No masses. Brown stool which is trace heme positive. EXTREMITIES: Without cyanosis, clubbing or edema. Pedal pulses are present but diminished. NEUROLOGIC EXAM: Patient is awake, alert, oriented. His cranial nerves are intact. He has mild horizontal nystagmus, is mildly tremulous. DIAGNOSTIC STUDIES LABORATORY: On admission labs hematocrit is 41.8, normal white count, platelet count is 87 which is improved; SMA-12: Glucose 119, sodium 121 (of note patient usually is hyponatremic but this is lower than usual), potassium 2.9, chloride 80, bilirubin 2.9, has been intermittently elevated in the past as well, most of this is indirect, AST is 51, alkaline phosphatase 158, normal amylase and lipase. Alcohol less than 5. ASSESSMENT 1. Likely gastroenteritis although the patient's nausea, vomiting, diarrhea may be related to his alcohol abuse as well. 2. Hyponatremia, hypokalemia secondary to gastroenteritis and ongoing alcohol abuse. Of note patient is chronically hyponatremic but this is worse than usual. 3. Alcohol abuse with alcohol-induced liver disease. 4. Chronic thrombocytopenia secondary to alcohol abuse. 5. Peptic ulcer disease requiring exploratory laparotomy. 6. History of pancreatitis with normal amylase and lipase currently. 7. Tobacco abuse. PLANS 1. IV fluids and supportive treatment. 2. Correct electrolytes, obtain magnesium level. 3. Benzos and vitamins. 4. Check acute abdominal series, EKG, cardiac enzymes. 5. SCDs for DVT prophylaxis. 6. Stool cultures. Dictated by Aminah Cole M.D. AML/cf TD: 01/11/2017 21:22 JOB #: [id number] Unit #: [id number] #: [id number] Patient: YADIEL ANGELES HISTORY AND PHYSICAL Page 1 of 1 X Aminah Cole MD HISTORY AND PHYSICAL
--- NOTE | ~2017-01-11 | EKG ---
PATIENT: YADIEL ANGELSE UNIT #: [id number] Ventricular Rate: 89 BPM Atrial Rate: 89 BPM P-R Interval: 148 ms QRS Duration: 78 ms Q-T Interval: 414 ms QTC Calculation(Bezet): 503 ms P [place]: 57 degrees Calculated R [place]: 54 degrees Calculated T [place]: 61 degrees Diagnosis Line: Normal sinus rhythm Diagnosis Line: Prolonged QT Diagnosis Line: Abnormal ECG Diagnosis Line: When compared with ECG of 11-JAN-2017 23:34, Diagnosis Line: (unconfirmed) Diagnosis Line: Criteria for Septal infarct are no longer Present Diagnosis Line: Confirmed by JESSICA DIXON MD ([id number]) on 01/12/2017 Diagnosis Line: 9:44:10 AM INTERPRETING MD: DESTINY BANSAL
--- NOTE | ~2017-01-11 | DS ---
Unit #: [id number] #: [id number] Patient: YADIEL ANGELES [id number] [address] [address] [id number] I MR#: [id number] NAME: YADIEL ANGELES ROOM: [facility] Age: 56 Sex: M Admission Date: 01/11/2017 : 1960 Discharge Date: 01/14/2017 Attending Physician: Nara Grimm M.D. Primary Care Physician: No Primary Care Physician DISCHARGE SUMMARY DISCHARGE DIAGNOSES 1. Viral gastroenteritis. 2. Acute on chronic hyponatremia secondary to alcohol abuse. 3. Hypokalemia. 4. Hypomagnesemia. 5. Alcohol dependence. 6. Alcohol induced liver disease. 7. Chronic thrombocytopenia. 8. Peptic ulcer disease. 9. Smoking. 10. History of pancreatitis. 11. Metabolic acidosis. 12. Hypophosphatemia. CONSULTANTS None. PROCEDURES PERFORMED None. DIAGNOSTIC DATA LABORATORY: Sodium 125, potassium 3.9, glucose 131, creatinine 0.6, white blood cell count 5.3, hemoglobin 11.2, platelets 59. Urinalysis negative. Troponins negative. ALLERGIES No known drug allergies. DISCHARGE MEDICATIONS 1. Magnesium oxide 400 mg p.o. t.i.d. 2. Nicotine 14 mg transdermal daily. 3. Multivitamin 1 tablet daily. 4. Potassium 40 mEq p.o. daily. 5. Sodium chloride tablets 1 g p.o. t.i.d. 6. Thiamine 100 mg daily. HOSPITAL COURSE The patient is a 56-year-old admitted because of abdominal pain and diarrhea. Acute viral gastroenteritis: Resolved. [id number] hyponatremia: Secondary to alcohol abuse. The patient was fluid restriction and sodium chloride tablets. Currently sodium is Unit #: [id number] #: [id number] Patient: YADIEL ANGELES 125, which is his baseline. Continue fluid restriction at 1500 mL per day at home. I gave prescription for sodium chloride. Alcohol dependence: Advised to quit. Hypokalemia and hypomagnesemia: Replaced. I am going to give prescriptions for both potassium and magnesium. Smoking: Advised to quit. I gave nicotine patch. Alcohol dependence: The patient received alcohol withdrawal protocol and Librium. Currently he is alert and oriented times three. No hallucinations. He does not need any medications to take home. He needs to follow with a psychiatrist as an outpatient. credit review manager to arrange it. DISPOSITION Discharge home. FOLLOWUP Follow up with family physician in one week time. Dictated by... Casa Estrada/michael TD: 01/14/2017 11:30 JOB #: [id number] DISCHARGE SUMMARY Page 1 of 1 X Nara Grimm MD X DISCHARGE SUMMARY
--- NOTE | ~2017-01-11 | EKG ---
PATIENT: YADIEL ANGELES UNIT #: [id number] Ventricular Rate: 95 BPM Atrial Rate: 95 BPM P-R Interval: 142 ms QRS Duration: 70 ms Q-T Interval: 412 ms QTC Calculation(Bezet): 517 ms P [place]: 60 degrees Calculated R [place]: 62 degrees Calculated T [place]: 76 degrees Diagnosis Line: Normal sinus rhythm Diagnosis Line: Early repolarization Prolonged QT Diagnosis Line: Abnormal ECG Diagnosis Line: When compared with ECG of 25-DEC-2016 02:07, Diagnosis Line: No significant change was found Diagnosis Line: Confirmed by JESSICA DIXON MD ([id number]) on 01/12/2017 Diagnosis Line: 9:41:56 AM INTERPRETING MD: DESTINY BANSAL
--- NOTE | ~2017-01-11 | CR2 ---
[facility] A Service of [facility] RADIOLOGY TEXT RESULTS PATIENT: YADIEL ANGELES LOCATION: [facility] 570-01 : [birth year] UNIT #: [id number] AGE: [address]: Nara Grimm MD SEX: M ORDER DR: [id number] [facility] [address]. [place], [place] [address] [id number] I MR#: [id number] Acc #: [id number] NAME: YADIEL ANGELES. : 1960 SEX: M STUDY DATE/TIME: 01/11/2017 22:19 UNIT: [facility] ROOM: [facility] STUDY DESCRIPTION: CR Abdomen Acute Series Attending Physician: Aminah Cole M.D. Ordering Physician: Rolna Thornton M.D. Primary Care Physician: Primary Care Physician No MEDICAL IMAGING REPORT This report is preliminary unless electronic signature is present EXAM Acute abdominal series COMPARISON January 13, 2016. INDICATIONS 56-year-old male with generalized abdominal pain, emesis and diarrhea for 1 day. FINDINGS Cardiomediastinal silhouette is within normal limits. There are degenerative changes in the bilateral lower cervical spine. No evidence of acute fracture, pleural effusion or acute airspace disease. Diffuse spondylosis of the thoracic spine. Degenerative changes of both acromioclavicular joints. No free subdiaphragmatic air. There is mild gaseous distension of the splenic flexure of the colon. No evidence of high-grade mechanical bowel obstruction. Gas is seen in the lumen of the sigmoid colon. There are pelvic phleboliths on the left. There is levoscoliosis of the lumbar spine. There is grossly stable degenerative disc change at L3-L4. There is also degenerative disc height loss at L4-L5. IMPRESSION 1. No evidence of bowel obstruction or perforation. 2. No acute radiographic abnormality of the chest. Dictated by... Ezekiel Verdugo M.D. THIS IS AN ELECTRONICALLY VERIFIED REPORT Ezekiel Verdugo M.D. at 01/12/2017 4:20 PM [facility] A Service of [facility] RADIOLOGY TEXT RESULTS PATIENT: YADIEL ANGELES LOCATION: [facility] 570-01 : [birth year] UNIT #: [id number] AGE: [address]: Nara Grimm MD SEX: M ORDER DR: Mercedez TD: 01/12/2017 02:25 JOB #: [id number] MEDICAL IMAGING REPORT Page 1 of 1 COPY
[2017-01-11 18:34] LABS: BASOPHIL% 0.2 % (0-2.5); EOSINOPHIL% 0.1 % (0.0-7.0); HEMATOCRIT 41.8 % (38.0-50.0); HEMOGLOBIN 14.1 gm/dL (13.0-16.0); LYMPHOCYTE% 11.8 % (17.0-45.0); MEAN CELL VOLUME 93.1 FL (83-96); MEAN CORPUSCULAR HEMOGLOBIN 31.4 PG (28-34); MEAN CORPUSCULAR HGB CONC 33.7 g/dL (30-36); MONOCYTE# 0.4 X10e3 (0-1.0); MONOCYTE% 5.1 % (3.0-12.0); NEUTROPHIL% 82.8 % (40-75); RED BLOOD COUNT 4.49 X10e (3.90-5.60); RED CELL DISTRIBUTION WIDTH 16.7 % (11.0-15.5); WHITE BLOOD COUNT 8.5 X10e3 (4.0-10.5)
[2017-01-11 18:55] LABS: DIFF IND NO; PLATELET COUNT 87 X10e3 (140-420)
[~2017-01-11 18:56] MED LIST changes: +FOLIC ACID1 MG PO; +MAG-OX 400400 M1 PO; +SODIUM CHLORIDE1 GM PO; +THIAMINE HCL100 M1 PO
[2017-01-11 19:00] LABS: ALBUMIN SERUM 4.1 g/dL (3.5-5.0); ALKALINE PHOSPHATASE 158 U/L (32-92); ALT (SGPT) 37 U/L (10-40); AMYLASE 25 U/L (0-46); AST (SGOT) 51 U/L (10-42); BILIRUBIN, DIRECT 0.6 mg/dL (0.0-0.2); BILIRUBIN,INDIRECT 2.3 mg/dL (0.0-0.9); BILIRUBIN,TOTAL 2.9 mg/dL (0.2-2.0); BLOOD UREA NITROGEN 7 mg/dL (9-23); BUN/CREATININE RATIO 8.75; CALCIUM SERUM 9.2 mg/dL (8.4-10.2); CARBON DIOXIDE 28 mmol/L (22-31); CHLORIDE 80 mmol/L (100-111); CREATININE SERUM 0.8 mg/dL (0.6-1.4); GLOM FILT RATE Estimated 101.3 mL/min (>60); GLUCOSE FASTING 119 mg/dL (70-110); LIPASE 49 U/L (22-51); PROTEIN TOTAL SERUM 7.5 g/dL (6.0-8.3)
[2017-01-11 19:03] LABS: ALCOHOL BLOOD <5 mg/dL (0); POTASSIUM 2.9 mmol/L (3.5-5.1); SODIUM 121 mmol/L (135-145)
[2017-01-12 00:50] LABS: HEMATOCRIT 37.8 % (38.0-50.0); HEMOGLOBIN 12.6 gm/dL (13.0-16.0); MEAN CELL VOLUME 93.3 FL (83-96); MEAN CORPUSCULAR HEMOGLOBIN 31.1 PG (28-34); MEAN CORPUSCULAR HGB CONC 33.3 g/dL (30-36); MEAN PLATELET VOLUME 8.3 FL (6.5-11.5); RED BLOOD COUNT 4.05 X10e (3.90-5.60); RED CELL DISTRIBUTION WIDTH 16.4 % (11.0-15.5); WHITE BLOOD COUNT 8.1 X10e3 (4.0-10.5)
[2017-01-12 01:24] LABS: BUN/CREATININE RATIO 8.33; CALCIUM SERUM 8.3 mg/dL (8.4-10.2); CREATININE SERUM 0.6 mg/dL (0.6-1.4); MAGNESIUM 1.6 mg/dL (1.6-3.0); POTASSIUM 3.2 mmol/L (3.5-5.1)
[2017-01-12 02:07] LABS: %MB 1.5 % (0.0-4.0); MB 0.9 ng/ml
[2017-01-12 06:54] LABS: HEMOGLOBIN 11.7 gm/dL (13.0-16.0); MEAN CORPUSCULAR HEMOGLOBIN 31.4 PG (28-34); MEAN CORPUSCULAR HGB CONC 33.4 g/dL (30-36); MEAN PLATELET VOLUME 8.6 FL (6.5-11.5); RED BLOOD COUNT 3.72 X10e (3.90-5.60); RED CELL DISTRIBUTION WIDTH 16.8 % (11.0-15.5); WHITE BLOOD COUNT 6.4 X10e3 (4.0-10.5)
[2017-01-12 07:22] LABS: ALBUMIN SERUM 3.2 g/dL (3.5-5.0); BILIRUBIN,TOTAL 1.9 mg/dL (0.2-2.0); BUN/CREATININE RATIO 12.5; CALCIUM SERUM 8.4 mg/dL (8.4-10.2); CREATININE SERUM 0.4 mg/dL (0.6-1.4); GLOM FILT RATE Estimated 134.7 mL/min (>60); MAGNESIUM 1.5 mg/dL (1.6-3.0); POTASSIUM 3.2 mmol/L (3.5-5.1); PROTEIN TOTAL SERUM 5.9 g/dL (6.0-8.3)
[2017-01-12 09:27] LABS: URINE APPEARANCE CLEAR; URINE BILIRUBIN NEG (NEG); URINE BLOOD NEG (NEG); URINE COLOR YELLOW; URINE GLUCOSE NEG (NEG); URINE KETONE TRACE (NEG); URINE LEUKOCYTE ESTERASE NEG (NEG); URINE NITRATE NEG (NEG); URINE PH 7.5 (5-8); URINE PROTEIN NEG (NEG); URINE SPECIFIC GRAVITY 1.008 (1.003-1.035); URINE UROBILINOGEN 0.2 MG/DL (NEG)
[2017-01-12 09:45] LABS: CULTURE INDICATED? NO
[2017-01-13 06:54] LABS: HEMATOCRIT 34.2 % (38.0-50.0); HEMOGLOBIN 11.2 gm/dL (13.0-16.0); MEAN CELL VOLUME 94.7 FL (83-96); MEAN CORPUSCULAR HGB CONC 32.7 g/dL (30-36); MEAN PLATELET VOLUME 8.5 FL (6.5-11.5); RED BLOOD COUNT 3.61 X10e (3.90-5.60); RED CELL DISTRIBUTION WIDTH 16.5 % (11.0-15.5); WHITE BLOOD COUNT 5.3 X10e3 (4.0-10.5)
[2017-01-13 07:42] LABS: ALBUMIN SERUM 3.4 g/dL (3.5-5.0); BILIRUBIN,TOTAL 1.4 mg/dL (0.2-2.0); CALCIUM SERUM 8.3 mg/dL (8.4-10.2); CREATININE SERUM 0.6 mg/dL (0.6-1.4); MAGNESIUM 1.7 mg/dL (1.6-3.0); PHOSPHOROUS 1.2 mg/dL (2.5-4.6); POTASSIUM 3.2 mmol/L (3.5-5.1)
[2017-01-14 07:36] LABS: CALCIUM SERUM 8.8 mg/dL (8.4-10.2); CREATININE SERUM 0.6 mg/dL (0.6-1.4); POTASSIUM 3.9 mmol/L (3.5-5.1)
[2017-01-14] MEDS ORDERED: MAG-OX 400400 M1 PO (11:23)
[2017-01-14] MEDS ORDERED: NICOTINE TRANSD14 MG TOP (11:24)
[2017-01-14] MEDS ORDERED: MULTI VITAMIN1 EACH PO (11:25)
[2017-01-14] MEDS ORDERED: K-DUR20 ME1 PO (11:27)
[2017-01-14] MEDS ORDERED: SODIUM CHLORIDE1 GM PO (11:28)
[2017-01-14] MEDS ORDERED: B-1100 MG PO (11:29)
== END 2017-01-14 11:58 | disposition home or self-care (01) | DRG 392 ==
LOC: CED 18:56 → CEDOF 21:00 → C5C 01-12 00:02
PROVIDERS: Emergency Medicine; Internal Medicine
DX: A08.4 Viral intestinal infection, unspecified (principal); D69.59 Other secondary thrombocytopenia; E83.42 Hypomagnesemia; K70.9 Alcoholic liver disease, unspecified; E83.39 Other disorders of phosphorus metabolism; E87.1 Hypo-osmolality and hyponatremia; E87.6 Hypokalemia; F17.210 Nicotine dependence, cigarettes, uncomplicated; F10.20 Alcohol dependence, uncomplicated; Z87.11 Personal history of peptic ulcer disease
CPT/HCPCS: 74022; 80048; 80053; 80076; 81003; 82150; 82550; 82553; 83690; 83735; 84100; 84484; 85025; 85027; 93005; 96361; 96374; 99285; C9113; G0480; J2270; J2405; J3411; J3475

== ENCOUNTER 2017-02-13 06:38 | Inpatient (IN) | payer OTHER ==
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
--- NOTE | ~2017-02-13 | CO ---
Unit #: [id number] #: [id number] Patient: YADIEL RAY [id number] [address] [address] [id number] I MR#: [id number] NAME: YADIEL RAY. ROOM: 313 Age: 56 Sex: M Admission Date: 02/13/2017 : 1960 Attending Physician: Nikky Mancini M.D. Primary Care Physician: Ladan Primary Care Physician Requesting Physician: Nikky Mancini M.D. Consultation Date: 02/17/2017 CONSULTATION REPORT REASON FOR CONSULTATION Acute colitis. HISTORY OF PRESENT ILLNESS Mr. Ray is a 56-year-old white gentleman, a patient with longstanding history of heavy alcohol abuse, on an average half pint of hard liquor every day. The patient was admitted a couple of days ago with a history of nausea, vomiting and diarrhea. Since then he has been treated with empiric antibiotics. He says his diarrhea is so bad that he has to go up to 15 to 20 times a day and he has very little control over his bowel movements. The diarrhea is nonbloody. Initial CAT scan on admission showed evidence of colitis. The patient was given Levaquin and Flagyl in the emergency room. PAST MEDICAL HISTORY 1. History of longstanding alcohol abuse. 2. History of chronic pancreatitis. 3. Hypertension. 4. Peptic ulcer disease. PAST SURGICAL HISTORY Exploration laparotomy. SOCIAL HISTORY The patient continues to drink heavily. He drinks every day. He smokes a half pack of cigarettes daily. FAMILY HISTORY Colon cancer in his father, who of colon cancer, and arthritis. ALLERGIES No known drug allergies. HOME MEDICATIONS Nexium. REVIEW OF SYSTEMS Detailed review of organ systems does not reveal any recent weight loss. No history of fever, chills or rigors. No headache or seizure or chest pain. No syncope. No history of cough, expectoration, hemoptysis. No history of dysuria, hematuria or pyuria. No history of focal seizures or extremity weakness. The rest of the review of organ systems is unremarkable. Unit #: [id number] #: [id number] Patient: YADIEL RAY PHYSICAL EXAMINATION GENERAL: Alert and oriented. Appears uncomfortable. VITALS: Stable with temperature 98.0, pulse 92 per minute, respiratory rate 16, blood pressure 159/66. Weight 165 pounds, which is close to his baseline weight. HEENT: He has mild pallor. No icterus, lymphadenopathy or peripheral edema. LUNGS: Normal breath sounds. Good air entry. HEART: Normal heart sounds. No murmurs to auscultation. ABDOMEN: Soft and nontender. Liver and spleen not palpable. Bowel sounds normal. DIAGNOSTIC STUDIES IMAGING: CT scan of the abdomen and pelvis was done with contrast and it shows thickening of the colon with pericolonic soft tissue stranding, especially in the descending colon up to the rectum. The differential diagnosis can be versus infectious (1) . LABORATORY: Hemoglobin 12.0, white blood cell count normal, platelet count 87. INR 1.0. Serum chemistry shows BUN 9, creatinine 0.4. CO2 21, albumin 3.3, total bilirubin 0.8. AST and ALT are surprisingly normal. Hemoglobin on admission was 12. ASSESSMENT/PLAN 1. Patient with significant diarrhea and CT changes of colitis. His stool studies have been sent. Rule out c-diff toxin and the fecal occult blood is negative. The patient does need a diagnostic colonoscopy and this will be done to ascertain etiology of the problem. This will be done sometime tomorrow. 2. Underlying alcohol abuse with thrombocytopenia. The patient has underlying chronic liver disease. The issue if colonoscopy, its potential risks and complications including possibility of perforation, bleeding, complication of sedation were discussed with the patient and he was reassured. Thank you for asking me to see this pleasant gentleman. I appreciate the consultation. Dictated by... Casa Floyd/michael TD: 02/18/2017 07:32 JOB #: [id number] CC: Nikky Mancini M.D. Unit #: [id number] #: [id number] Patient: YADIEL RAY CONSULTATION REPORT Page 1 of 1 X Geovany Santos MD CONSULTATION REPORT
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
--- NOTE | ~2017-02-13 | HP ---
Unit #: [id number] #: [id number] Patient: YADIEL ANGELES [id number] [facility] [address]. [place], [place] [address] [id number] I MR#: [id number] NAME: YADIEL ANGELES. ROOM: 37049 Age: 56 Sex: M Admission Date: 02/13/2017 : 1960 Attending Physician: Aleida Centeno M.D. Primary Care Physician: No Primary Care Physician HISTORY AND PHYSICAL CHIEF COMPLAINT Vomiting, nausea, diarrhea. HISTORY OF PRESENT ILLNESS The patient is a 56-year-old male with past medical history of pancreatitis, hypertension, alcohol abuse who presents to the emergency department for evaluation of the above. The patient states that he has had a two-day history of abdominal pain, vomiting, and diarrhea. The abdominal pain is "everywhere." He describes it as "pain." He has had more than six bouts of nonbloody emesis within the past 24 hours. He has had three to four bouts of nonbloody diarrhea. He states that it is similar to when he has had pancreatitis in the past. He denies any urinary symptoms. He also has back pain. He was apparently recently diagnosed with a vertebral fracture. In the emergency department, a CT of the abdomen and pelvis was done and showed findings concerning for acute colitis. He was given Levaquin and Flagyl in the emergency department. He is being admitted to [facility] for evaluation and further treatment. PAST MEDICAL HISTORY 1. Admission to [facility], January 11 through January 14, 2017, for gastroenteritis. 2. History of alcohol abuse with multiple admissions for alcohol withdrawal. 3. History of pancreatitis. 4. Hypertension. 5. Peptic ulcer disease. PAST SURGICAL HISTORY Exploratory laparotomy. SOCIAL HISTORY The patient continues to drink. He states that his last drink was on February 10, 2017 and consisted of a half pint. He is typically a daily drinker. He smokes a half pack of cigarettes daily. FAMILY HISTORY Notable for colon cancer and arthritis. ALLERGIES No known allergies. Unit #: [id number] #: [id number] Patient: YADIEL ANGELES HOME MEDICATIONS Include Nexium. Home medications will need to be reviewed and verified. REVIEW OF SYSTEMS A complete review of systems is negative except as indicated in the HPI. DIAGNOSTIC STUDIES LABORATORY: Complete blood count is notable for platelets of 134,000. Comprehensive metabolic panel notable for sodium of 123, potassium 2.3, chloride 82, glucose 113, BUN and creatinine less than 5 and 0.3 respectively. Alkaline phosphatase 120, total bilirubin 2.7. Amylase and lipase are normal. Alcohol level less than 5. Urinalysis is essentially negative. Urine tox screen is positive for benzodiazepines and opiates. Lactic acid is 1.3. IMAGING: CT of the abdomen and pelvis shows thick-walled colon descending to rectum, concerning for acute colitis. PHYSICAL EXAMINATION VITAL SIGNS: Temperature is 98, pulse 89, respirations 16, blood pressure 137/101, oxygen saturation 100% on room air. GENERAL: The patient is a male is awake and alert in no acute distress. HEENT: The head is atraumatic. Mucous membranes are moist. NECK: Supple. Trachea is midline. CARDIOVASCULAR: Regular rate and rhythm. LUNGS: Clear to auscultation bilaterally with no increased work of breathing. ABDOMEN: Soft. He is tender to palpation throughout. Bowel sounds are present in all four quadrants. EXTREMITIES: Nontender with no pedal edema. NEUROLOGIC: The patient is awake and alert. He follows commands. PSYCHIATRIC: Mood and affect are normal. The patient is cooperative. SKIN: Skin of examined areas is warm and dry. ASSESSMENT The patient is a 56-year-old male with: 1. Acute colitis: The patient received Flagyl and Levaquin in the emergency department. 2. Hyponatremia with an initial sodium of 123. The patient is a daily drinker. He also was somewhat volume depleted. He received 1 L of normal saline in the emergency department. 3. Hypokalemia: The patient received 30 mEq of potassium in the emergency department. 4. Alcohol abuse with last drink being February 10, 2017. He has had multiple admissions for alcohol withdrawal. 5. Hypertension. 6. Tobacco abuse. PLAN 1. Admit to intermediate level. 2. NPO and will advance to clear liquids as tolerated. 3. Blood cultures x2. 4. Stool studies including ova and parasites, Clostridium difficile culture and sensitivity. Unit #: [id number] #: [id number] Patient: YADIEL ANGELES 5. Levaquin and Flagyl IV pending further workup. 6. Urine sodium and osmolality. 7. Serum osmolality. 8. Chest x-ray for further evaluation of hyponatremia. 9. Repeat BMP later this evening to followup hyponatremia. 10. Check magnesium level. 11. Potassium/magnesium protocol. 12. Strict ins and outs. 13. Alcohol withdrawal protocol with IV fluids to start now. 14. P.r.n. Zofran. 15. P.r.n. Toradol. 16. Check EKG and cardiac enzymes. 17. Repeat labs in the morning including magnesium. 18. SCDs for deep venous thrombosis prophylaxis. 19. Additional workup and consultants based on above. JOB #: [id number] Dictated by Casa Bingham/araseli TD: 02/13/2017 14:25 JOB #: [id number] HISTORY AND PHYSICAL Page 1 of 1 X Aleida Centeno MD HISTORY AND PHYSICAL
--- NOTE | ~2017-02-13 | CT2 ---
[facility] A Service of [facility] & [facility] RADIOLOGY TEXT RESULTS PATIENT: YADIEL ANGELES [facility] : [birth year] UNIT #: [id number] AGE: [address]: Nikky Mancini MD SEX: M ORDER DR: [id number] [facility] [place] [address]. [place], [place] [address] [id number] I MR#: [id number] Acc #: [id number] NAME: YADIEL ANGELES. : 1960 SEX: M STUDY DATE/TIME: 02/13/2017 9:54 UNIT: [facility] ROOM: 572 STUDY DESCRIPTION: CT Abd and Pelv W Cont Attending Physician: Aleida Centeno M.D. Ordering Physician: Haydee Catalan M.D. Primary Care Physician: Primary Care Physician No MEDICAL IMAGING REPORT This report is preliminary unless electronic signature is present EXAM CT of the abdomen and pelvis with contrast INDICATIONS Diffuse abdominal pain and back pain for 2 days. Nausea, vomiting and diarrhea. Patient reportedly has a history of pancreatitis. TECHNIQUE Axial CT images were obtained from the dome of the diaphragm through the symphysis pubis following administration of intravenous contrast material. This CT exam was performed with one or more of the following radiation dose reduction techniques: Automatic exposure control, adjustment of mA and/or kV according to patient size, and iterative reconstruction. FINDINGS Images through the lung bases are clear. There is a small hiatal hernia. Mildly prominent cardiophrenic nodes are noted but were also present in June 2015 and are probably not significantly changed. There is some geographically decreased attenuation seen within the left hepatic lobe of uncertain clinical significance; it potentially may reflect some geographic hepatic steatosis. Spleen appears unremarkable, as is the proximal small bowel. Adrenal glands and pancreas are within normal limits. Patient does have cholelithiasis, although I do not see any convincing evidence of acute cholecystitis. Kidneys appear normal. Prostate gland is within normal limits, as is the urinary bladder. This patient's sigmoid colon and rectum appear diffusely thick-walled with some pericolonic soft tissue stranding noted; this certainly could reflect colitis in the appropriate clinical setting. There is probably also some involvement of the descending colon, as well. [facility] A Service of [facility] & [facility] RADIOLOGY TEXT RESULTS PATIENT: YADIEL ANGELES LOCATION: [facility] CICCU3-16 : [birth year] UNIT #: [id number] AGE: [address]: Nikky Mancini MD SEX: M ORDER DR: The appendix is visualized and is within normal limits. There is relative sparing of the patient's transverse colon and ascending colon. There is no pneumatosis or free air. No free fluid or adenopathy is seen within the pelvis. There are small bilateral fat-containing inguinal hernias. Review of bony windows demonstrates an old right twelfth rib fracture. No aggressive osseous abnormalities are seen. IMPRESSION 1. This patient's colon appears to be thick-walled, with some pericolonic soft tissue stranding extending from the descending colon all the way to the rectum, but particularly involving the sigmoid colon and rectum. Findings are most in keeping with colitis. I do not see any evidence of pneumatosis, free air or obstruction. Infectious and inflammatory etiologies would be in the differential, although certainly ischemic colitis would be a consideration given distribution, although the patient has relatively minimal atherosclerotic disease. 2. The appendix is visualized and is within normal limits. 3. Cholelithiasis without evidence of acute cholecystitis. 4. Small hiatal hernia. Please see the body of the report for any other additional incidental findings. Dictated by... Milagros Amaya M.D. THIS IS AN ELECTRONICALLY VERIFIED REPORT Milagros Amaya M.D. at 02/15/2017 1:21 PM AFF/psc TD: 02/13/2017 16:51 JOB #: [id number] MEDICAL IMAGING REPORT Page 1 of 1 COPY
--- NOTE | ~2017-02-13 | CO ---
Unit #: [id number] #: [id number] Patient: YADIEL ANGELES [id number] [address] [place], [place] [address] [id number] I MR#: [id number] NAME: YADIEL ANGELES. ROOM: [facility] Age: 57 Sex: M Admission Date: 02/13/2017 : 1960 Attending Physician: Nikky Mancini M.D. Primary Care Physician: Primary Care Physician No Consultation Date: 02/18/2017 CONSULTATION REPORT JOB NOTE: ADDENDUM ADDENDUM ASSESSMENT AND PLAN 1. Hyponatremia. 2. History of alcohol abuse. 3. Pancreatitis. 4. Hypertension. DISCUSSION The patient's low sodium is likely related to his alcohol abuse and with some nausea and vomiting. 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 Follow up with sodium level closely. We will hold IV normal saline that might be contributing to hyponatremia in the presence of SIADH. 3% saline will be started. Follow up the patient with repeat labs after every couple of hours. Once sodium level is around 125 to 126, I think then oral salt pill and fluid restriction will be initiated and follow up the patient closely. Thank you for letting me evaluate in taking care of this patient. Dictated by... Casa Mendez/natalia TD: 03/29/2017 11:34 JOB #: [id number] CONSULTATION REPORT Page 1 of 1 X Dash Hernandez MD X CONSULTATION REPORT
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
--- NOTE | ~2017-02-13 | OR ---
Unit #: [id number] #: [id number] Patient: YADIEL ANGELES [id number] [address] [place], [place] [address] [id number] I MR#: [id number] NAME: YADIEL ANGELES. ROOM: 313 Date of Procedure: 02/18/2017 Admission Date: 02/13/2017 Surgeon: Geovany Santos M.D. : 1960 Attending Physician: Nikky Mancini M.D. Primary Care Physician: Primary Care Physician No OPERATIVE REPORT PREOPERATIVE DIAGNOSES Acute colitis, diarrhea. The patient has history of alcoholic liver disease. PROCEDURES PERFORMED Colonoscopy with biopsy and colonoscopy with polypectomy. POSTOPERATIVE DIAGNOSES 1. The patient had multiple polyps. There were three polyps in transverse colon, three in the hepatic flexure, one in the sigmoid colon. All the polyps were removed using snare cautery polypectomy, retrieved and sent for histology. 2. Otherwise, examination was normal up to cecum and terminal ileum. The quality of the prep was excellent. Multiple random colonic biopsies were obtained from throughout the colon to rule out microscopic or collagenous colitis. RECOMMENDATIONS Start diet as tolerated and repeat CBC, and CMP in the a.m. SEDATION MAC. DESCRIPTION OF PROCEDURE Following detailed explanation of the potential risks and complications of a colonoscopy, namely perforation, bleeding, and complication related to sedation, the patient was brought to GI lab and laid in the left lateral decubitus position. A digital rectal examination was performed, which was normal. Lubricated tip of the Olympus video colonoscope was inserted through the anus and advanced under direct vision. The scope was advanced past rectosigmoid into descending colon. No diverticula were noted in this area. Multiple polyps were seen during antegrade examination as well as during the withdrawal phase examination. Therefore, some of the polyps were removed during insertion of antegrade examination. The scope tip was then navigated all the way up to cecum with visualization of the ileocecal valve and the appendiceal orifice. Preparation was excellent with good visualization and photodocumentation was obtained. Last several inches of terminal ileum were also visualized after intubation of the ileocecal valve and appeared normal. Successive segments of the colonic mucosa were examined upon withdrawal. A total of seven polyps were noted and removed. There was one in sigmoid colon, three in transverse colon, and three in hepatic flexure. The polyps ranged in size from 7 mm to 1.5 cm. All were Unit #: [id number] #: [id number] Patient: YADIEL ANGELES sessile. The retrieved polyps were then sent for histology. Excellent hemostasis was achieved and photodocumentation was obtained. The patient did not have any diverticulosis nor any hemorrhoids. Multiple random colonic biopsies were obtained from throughout the colon to rule out microscopic or collagenous colitis. The patient tolerated the procedure without any postprocedure complications. Dictated by... Casa Floyd/natalia TD: 02/19/2017 16:19 JOB #: [id number] OPERATIVE REPORT Page 1 of 1 X Geovany Santos MD X PROCEDURE OPERATIVE NOTE
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
--- NOTE | ~2017-02-13 | CO ---
Unit #: [id number] #: [id number] Patient: YADIEL ANGELES [id number] [address] [place], [place] [address] [id number] Rachele MR#: [id number] NAME: YADIEL ANGELES. ROOM: 313 Age: 56 Sex: M Admission Date: 02/13/2017 : 1960 Attending Physician: Nikky Mancini M.D. Primary Care Physician: No Primary Care Physician CONSULTATION REPORT REASON FOR CONSULTATION Hyponatremia. HISTORY OF PRESENT ILLNESS The patient is a 56-year-old man with significant past medical history of alcohol problem and mainly admitted to the hospital with abdominal pain, nausea, vomiting, diarrhea, and not feeling well. Also, six times he vomited before coming to the hospital but when I saw the patient he was already better. Patient had history of pancreatitis in the past and renal consult was mainly called because of the low sodium. Sodium level is running anywhere between 124-130 last four to five months on his multiple admissions to the ER. He was on normal saline at about 80 mL/hr. His sodium level that was 126 dropped to 119 yesterday morning and renal consult was called. Patient says he is feeling fine. No new symptoms. No dizziness. No other complaint. Uric acid level was within normal limits. Patient has history of smoking but no history of COPD. He is not a big time smoker. Denies any other complaint. His initial urine studies showed the urine sodium was very high but urine osmolality was on the low side. PAST MEDICAL HISTORY 1. Gastroenteritis. 2. Alcohol abuse. 3. Pancreatitis. 4. Hypertension. 5. Peptic ulcer disease. PAST SURGICAL HISTORY Exploratory laparotomy. SOCIAL HISTORY The patient is an alcohol drinker and continued to drink. He also smoked about half pack a day for the last 10-15 years. FAMILY HISTORY Notable for colon cancer. REVIEW OF SYSTEMS Already explained. MEDICATIONS Unit #: [id number] #: [id number] Patient: YADIEL ANGELES Home medications were checked. That did not include any hydrochlorothiazide, but he is not taking any antihypertensive medicine for the last few days. PHYSICAL EXAMINATION GENERAL: The patient is a middle-aged male not in any acute distress. VITAL SIGNS: Temperature 98, pulse 89, respiratory rate 16, blood pressure 140/85, oxygen saturation 100%. HEAD AND NECK: Pupils reactive to light. Extraocular movements intact. Neck is supple. No JVD. No palpable lymph node. Carotid is not enlarged. No carotid bruit. CARDIOVASCULAR: Regular rate and rhythm. No murmur. No gallop. LUNGS: Bilateral air entry. No rhonchi. No crackles. ABDOMEN: Soft. Bowel sounds are positive. Minimal tenderness in the epigastric region but nothing significant. EXTREMITIES: No clubbing, cyanosis, and edema. Peripheral pulses are palpable. NEUROLOGIC: Grossly nonfocal. SKIN: Skin examination is normal. DIAGNOSTIC STUDIES LABORATORY: Labs showed patient's sodium level is 119. Uric acid level is 2.8. Potassium 3.1, bicarbonate level 21, magnesium 1.4. ASSESSMENT AND PLAN 1. DICTATION ENDED HERE Please note: This report has been placed on the patient's electronic medical record in an incomplete status following multiple physician notifications for a completion without a response or resolution. Dictated by... Casa Mendez TD: 02/18/2017 08:58 JOB #: [id number] CONSULTATION REPORT Page 1 of 1 X Dash Hernandez MD X CONSULTATION REPORT
--- NOTE | ~2017-02-13 | EKG ---
PATIENT: YADIEL ANGELES UNIT #: [id number] Ventricular Rate: 82 BPM Atrial Rate: 82 BPM P-R Interval: 150 ms QRS Duration: 80 ms Q-T Interval: 438 ms QTC Calculation(Bezet): 511 ms P [place]: 55 degrees Calculated R [place]: 38 degrees Calculated T [place]: 36 degrees Diagnosis Line: Normal sinus rhythm Diagnosis Line: Minimal voltage criteria for LVH, may be normal Diagnosis Line: variant Diagnosis Line: Prolonged QT Diagnosis Line: Abnormal ECG Diagnosis Line: When compared with ECG of 12-JAN-2017 07:42, Diagnosis Line: No significant change was found Diagnosis Line: Confirmed by RYDER VIVEROS MD ([id number]) on Diagnosis Line: 02/13/2017 10:21:20 PM INTERPRETING MD: BORA
[~2017-02-13 06:38] MED LIST changes: +B-1100 MG PO; +K-DUR20 ME1 PO; +NICOTINE TRANSD14 MG TOP
[2017-02-13 08:05] LABS: BASOPHIL# 0.1 X10e3 (0-0.3); BASOPHIL% 1.1 % (0-2.5); EOSINOPHIL% 0.6 % (0.0-7.0); HEMATOCRIT 42.3 % (38.0-50.0); HEMOGLOBIN 14.2 gm/dL (13.0-16.0); LYMPHOCYTE# 1.5 X10e3 (1.0-3.5); LYMPHOCYTE% 30.1 % (17.0-45.0); MEAN CELL VOLUME 90.3 FL (83-96); MEAN CORPUSCULAR HEMOGLOBIN 30.4 PG (28-34); MEAN CORPUSCULAR HGB CONC 33.6 g/dL (30-36); MEAN PLATELET VOLUME 7.7 FL (6.5-11.5); MONOCYTE# 0.8 X10e3 (0-1.0); MONOCYTE% 15.5 % (3.0-12.0); NEUTROPHIL# 2.7 X10e3 (1.5-7.1); NEUTROPHIL% 52.7 % (40-75); PLATELET COUNT 134 X10e3 (140-420); RED BLOOD COUNT 4.68 X10e (3.90-5.60); RED CELL DISTRIBUTION WIDTH 15.4 % (11.0-15.5); WHITE BLOOD COUNT 5.1 X10e3 (4.0-10.5)
[2017-02-13 08:07] LABS: DIFF IND NO
[2017-02-13 08:41] LABS: ALBUMIN SERUM 3.7 g/dL (3.5-5.0); ALKALINE PHOSPHATASE 120 U/L (32-92); ALT (SGPT) 26 U/L (10-40); AMYLASE 22 U/L (0-46); AST (SGOT) 37 U/L (10-42); BILIRUBIN, DIRECT 0.5 mg/dL (0.0-0.2); BILIRUBIN,INDIRECT 2.2 mg/dL (0.0-0.9); BILIRUBIN,TOTAL 2.7 mg/dL (0.2-2.0); CALCIUM SERUM 8.4 mg/dL (8.4-10.2); CARBON DIOXIDE 27 mmol/L (22-31); CHLORIDE 82 mmol/L (100-111); CREATININE SERUM 0.3 mg/dL (0.6-1.4); GLOM FILT RATE Estimated 151.6 mL/min (>60); GLUCOSE FASTING 113 mg/dL (70-110); LIPASE 32 U/L (22-51); PROTEIN TOTAL SERUM 6.8 g/dL (6.0-8.3)
[2017-02-13 08:42] LABS: BLOOD UREA NITROGEN <5 mg/dL (9-23); BUN/CREATININE RATIO 16.66
[2017-02-13 08:43] LABS: ALCOHOL BLOOD <5 mg/dL ([, 0]); POTASSIUM 2.3 mmol/L (3.5-5.1); SODIUM 123 mmol/L (135-145)
[2017-02-13 09:31] LABS: URINE SOURCE CLEAN CATCH
[2017-02-13 09:40] LABS: URINE APPEARANCE CLEAR; URINE BILIRUBIN NEG (NEG); URINE BLOOD NEG (NEG); URINE COLOR YELLOW; URINE GLUCOSE NEG (NEG); URINE KETONE NEG (NEG); URINE LEUKOCYTE ESTERASE NEG (NEG); URINE NITRATE NEG (NEG); URINE PH 8.5 (5-8); URINE PROTEIN NEG (NEG); URINE SPECIFIC GRAVITY 1.006 (1.003-1.035)
[2017-02-13 09:51] LABS: CULTURE INDICATED? NO
[2017-02-13 09:53] LABS: AMPHETAMINE NEG (NEG); BARBITURATES NEG (NEG); BENZODIAZEPINES POS (NEG); COCAINE NEG (NEG); MARIJUANA NEG (NEG); OPIATES POS (NEG); TRICYCLIC ANTIDEPRESSANTS NEG (NEG); U METHADONE NEG (NEG)
[2017-02-13] MEDS ORDERED: NEXIUM PO (12:11)
[2017-02-13] MEDS ORDERED: NEXIUM20 MG PO (14:38)
[2017-02-13 14:46] LABS: SODIUM URINE RANDOM 65 mmol/L
[2017-02-13 15:23] LABS: OSMOLALITY,URINE 221 mOsmo/kg (250-900)
[2017-02-13 18:53] LABS: CK TOTAL 55 IU/L (36-174)
[2017-02-13 19:10] LABS: BLOOD UREA NITROGEN <5 mg/dL (9-23); BUN/CREATININE RATIO 8.33; CARBON DIOXIDE 25 mmol/L (22-31); CHLORIDE 86 mmol/L (100-111); CREATININE SERUM 0.6 mg/dL (0.6-1.4); GLUCOSE FASTING 138 mg/dL (70-110)
[2017-02-13 19:13] LABS: POTASSIUM 2.7 mmol/L (3.5-5.1); SODIUM 125 mmol/L (135-145)
[2017-02-13 23:11] LABS: %MB 1.7 % (0.0-4.0); MB 1.1 ng/ml
[2017-02-14 07:57] LABS: HEMATOCRIT 37.7 % (38.0-50.0); HEMOGLOBIN 12.3 gm/dL (13.0-16.0); MEAN CELL VOLUME 91.8 FL (83-96); MEAN CORPUSCULAR HGB CONC 32.7 g/dL (30-36); MEAN PLATELET VOLUME 8.5 FL (6.5-11.5); RED BLOOD COUNT 4.1 X10e (3.90-5.60); RED CELL DISTRIBUTION WIDTH 15.4 % (11.0-15.5); WHITE BLOOD COUNT 4.9 X10e3 (4.0-10.5)
[2017-02-14 08:30] LABS: ALBUMIN SERUM 3.3 g/dL (3.5-5.0); ALKALINE PHOSPHATASE 99 U/L (32-92); ALT (SGPT) 21 U/L (10-40); AST (SGOT) 32 U/L (10-42); BILIRUBIN,TOTAL 1.6 mg/dL (0.2-2.0); CALCIUM SERUM 7.9 mg/dL (8.4-10.2); CARBON DIOXIDE 23 mmol/L (22-31); CHLORIDE 92 mmol/L (100-111); CREATININE SERUM 0.3 mg/dL (0.6-1.4); GLOM FILT RATE Estimated 151.6 mL/min (>60); GLUCOSE FASTING 105 mg/dL (70-110); MAGNESIUM 1.1 mg/dL (1.6-3.0); POTASSIUM 3.3 mmol/L (3.5-5.1); PROTEIN TOTAL SERUM 6.1 g/dL (6.0-8.3); SODIUM 126 mmol/L (135-145)
[2017-02-14 08:31] LABS: BLOOD UREA NITROGEN <5 mg/dL (9-23); BUN/CREATININE RATIO 16.66
[2017-02-14 12:32] LABS: MAGNESIUM 1.1 mg/dL (1.6-3.0)
[2017-02-14 12:41] LABS: POTASSIUM 2.9 mmol/L (3.5-5.1)
[2017-02-14 12:58] LABS: FOLATE (FOLIC ACID) 9.6 ng/mL (>5.8)
[2017-02-14 19:55] LABS: CALCIUM SERUM 7.9 mg/dL (8.4-10.2); CARBON DIOXIDE 20 mmol/L (22-31); CHLORIDE 91 mmol/L (100-111); CREATININE SERUM 0.6 mg/dL (0.6-1.4); GLUCOSE FASTING 117 mg/dL (70-110); MAGNESIUM 2.3 mg/dL (1.6-3.0); POTASSIUM 3.2 mmol/L (3.5-5.1)
[2017-02-14 19:56] LABS: BLOOD UREA NITROGEN <5 mg/dL (9-23); BUN/CREATININE RATIO 8.33; SODIUM 124 mmol/L (135-145)
[2017-02-15 00:40] LABS: BLOOD UREA NITROGEN <5 mg/dL (9-23); CALCIUM SERUM 7.8 mg/dL (8.4-10.2); CARBON DIOXIDE 24 mmol/L (22-31); CHLORIDE 93 mmol/L (100-111); CREATININE SERUM 0.4 mg/dL (0.6-1.4); GLOM FILT RATE Estimated 134.7 mL/min (>60); GLUCOSE FASTING 97 mg/dL (70-110); POTASSIUM 3.3 mmol/L (3.5-5.1)
[2017-02-15 00:41] LABS: SODIUM 124 mmol/L (135-145)
[2017-02-15 05:47] LABS: HEMATOCRIT 40.5 % (38.0-50.0); HEMOGLOBIN 13.3 gm/dL (13.0-16.0); MEAN CELL VOLUME 91.6 FL (83-96); MEAN CORPUSCULAR HGB CONC 32.7 g/dL (30-36); MEAN PLATELET VOLUME 8.4 FL (6.5-11.5); RED BLOOD COUNT 4.42 X10e (3.90-5.60); RED CELL DISTRIBUTION WIDTH 14.9 % (11.0-15.5); WHITE BLOOD COUNT 5.7 X10e3 (4.0-10.5)
[2017-02-15 06:36] LABS: ALBUMIN SERUM 3.3 g/dL (3.5-5.0); ALKALINE PHOSPHATASE 102 U/L (32-92); ALT (SGPT) 21 U/L (10-40); AST (SGOT) 34 U/L (10-42); BILIRUBIN,TOTAL 0.8 mg/dL (0.2-2.0); CALCIUM SERUM 8.2 mg/dL (8.4-10.2); CARBON DIOXIDE 22 mmol/L (22-31); CHLORIDE 94 mmol/L (100-111); CREATININE SERUM 0.5 mg/dL (0.6-1.4); GLOM FILT RATE Estimated 122.9 mL/min (>60); GLUCOSE FASTING 110 mg/dL (70-110); POTASSIUM 3.3 mmol/L (3.5-5.1); SODIUM 126 mmol/L (135-145)
[2017-02-15 06:38] LABS: BLOOD UREA NITROGEN <5 mg/dL (9-23)
[2017-02-15 07:25] LABS: ARTERIAL BLOOD GAS pH 7.498 (7.350-7.450)
[2017-02-15 07:26] LABS: ARTERIAL BLD GAS O2 SATURATION 98.4 % (90.0-100.0); ARTERIAL BLOOD GAS ALLEN TEST NORMAL; ARTERIAL BLOOD GAS ART SITE LEFT RADIAL; ARTERIAL BLOOD GAS DELIVERY ROOM AIR; ARTERIAL BLOOD GAS HCO3 23.3 mmol/L; ARTERIAL BLOOD GAS MET HB 0.5 %sat (0.0-2.0); ARTERIAL BLOOD GAS PO2 87.8 mmHg (80.0-100); ARTERIAL DRAW? YES
[2017-02-16 06:39] LABS: BASOPHIL# 0.1 X10e3 (0-0.3); BASOPHIL% 1.1 % (0-2.5); EOSINOPHIL# 0.1 X10e3 (0-0.7); EOSINOPHIL% 2.4 % (0.0-7.0); HEMATOCRIT 36.8 % (38.0-50.0); LYMPHOCYTE% 35.7 % (17.0-45.0); MEAN CELL VOLUME 91.6 FL (83-96); MEAN CORPUSCULAR HEMOGLOBIN 29.8 PG (28-34); MEAN CORPUSCULAR HGB CONC 32.6 g/dL (30-36); MONOCYTE# 0.5 X10e3 (0-1.0); MONOCYTE% 9.8 % (3.0-12.0); NEUTROPHIL# 2.8 X10e3 (1.5-7.1); PLATELET COUNT 87 X10e3 (140-420); RED BLOOD COUNT 4.02 X10e (3.90-5.60); RED CELL DISTRIBUTION WIDTH 14.9 % (11.0-15.5); WHITE BLOOD COUNT 5.6 X10e3 (4.0-10.5)
[2017-02-16 06:42] LABS: DIFF IND NO
[2017-02-16 07:43] LABS: BLOOD UREA NITROGEN <5 mg/dL (9-23); CARBON DIOXIDE 22 mmol/L (22-31); CHLORIDE 94 mmol/L (100-111); CREATININE SERUM 0.5 mg/dL (0.6-1.4); GLOM FILT RATE Estimated 122.9 mL/min (>60); GLUCOSE FASTING 95 mg/dL (70-110); MAGNESIUM 1.4 mg/dL (1.6-3.0); POTASSIUM 3.7 mmol/L (3.5-5.1)
[2017-02-16 07:45] LABS: SODIUM 125 mmol/L (135-145)
[2017-02-17 06:28] LABS: BUN/CREATININE RATIO 22.5; CREATININE SERUM 0.4 mg/dL (0.6-1.4); GLOM FILT RATE Estimated 134.7 mL/min (>60); POTASSIUM 3.5 mmol/L (3.5-5.1)
[2017-02-17 12:03] LABS: URINE APPEARANCE CLOUDY; URINE BLOOD NEG (NEG); URINE COLOR DK YELLOW; URINE GLUCOSE 100 MG/DL (NEG); URINE KETONE TRACE (NEG); URINE LEUKOCYTE ESTERASE 1+ (NEG); URINE NITRATE POS (NEG); URINE PH 5.5 (5-8); URINE PROTEIN TRACE (NEG); URINE SPECIFIC GRAVITY 1.029 (1.003-1.035); URINE SQUAMOUS EPITHELIAL CELL OCC /[HPF]
[2017-02-17 12:18] LABS: URINE BILIRUBIN NEG (NEG); URINE MUCUS PRESENT
[2017-02-17 12:19] LABS: URINE BACTERIA AUWI 1+ (NEGATIVE); URINE CRYSTALS CALCIUM OXALATE /[HPF]
[2017-02-17 12:20] LABS: URBCS1 AUWI 0-2 /[HPF] (0-2)
[2017-02-17 12:59] LABS: OSMOLALITY,URINE 718 mOsmo/kg (250-900)
[2017-02-17 13:09] LABS: SODIUM URINE RANDOM 33 mmol/L
[2017-02-17 18:01] LABS: BUN/CREATININE RATIO 17.5; CALCIUM SERUM 8.4 mg/dL (8.4-10.2); CREATININE SERUM 0.4 mg/dL (0.6-1.4); GLOM FILT RATE Estimated 134.7 mL/min (>60); POTASSIUM 3.6 mmol/L (3.5-5.1)
[2017-02-18 05:45] LABS: HEMATOCRIT 38.2 % (38.0-50.0); HEMOGLOBIN 12.3 gm/dL (13.0-16.0); MEAN CELL VOLUME 92.8 FL (83-96); MEAN CORPUSCULAR HGB CONC 32.3 g/dL (30-36); MEAN PLATELET VOLUME 8.7 FL (6.5-11.5); RED BLOOD COUNT 4.11 X10e (3.90-5.60); RED CELL DISTRIBUTION WIDTH 15.4 % (11.0-15.5); WHITE BLOOD COUNT 5.8 X10e3 (4.0-10.5)
[2017-02-18 06:39] LABS: ALBUMIN SERUM 3.2 g/dL (3.5-5.0); BILIRUBIN,TOTAL 0.5 mg/dL (0.2-2.0); CALCIUM SERUM 8.7 mg/dL (8.4-10.2); CREATININE SERUM 0.5 mg/dL (0.6-1.4); GLOM FILT RATE Estimated 122.9 mL/min (>60); POTASSIUM 3.9 mmol/L (3.5-5.1); PROTEIN TOTAL SERUM 5.4 g/dL (6.0-8.3); URIC ACID 2.9 mg/dL (2.6-7.2)
[2017-02-18 17:57] LABS: BUN/CREATININE RATIO 17.5; CALCIUM SERUM 9.1 mg/dL (8.4-10.2); CREATININE SERUM 0.4 mg/dL (0.6-1.4); GLOM FILT RATE Estimated 134.7 mL/min (>60); POTASSIUM 3.6 mmol/L (3.5-5.1)
[2017-02-19 06:19] LABS: HEMATOCRIT 37.4 % (38.0-50.0); HEMOGLOBIN 12.2 gm/dL (13.0-16.0); MEAN CELL VOLUME 92.5 FL (83-96); MEAN CORPUSCULAR HEMOGLOBIN 30.1 PG (28-34); MEAN CORPUSCULAR HGB CONC 32.5 g/dL (30-36); MEAN PLATELET VOLUME 8.8 FL (6.5-11.5); RED BLOOD COUNT 4.05 X10e (3.90-5.60); RED CELL DISTRIBUTION WIDTH 15.8 % (11.0-15.5); WHITE BLOOD COUNT 5.3 X10e3 (4.0-10.5)
[2017-02-19 06:53] LABS: ALBUMIN SERUM 3.2 g/dL (3.5-5.0); BILIRUBIN,TOTAL 0.5 mg/dL (0.2-2.0); BUN/CREATININE RATIO 11.66; CALCIUM SERUM 8.8 mg/dL (8.4-10.2); CREATININE SERUM 0.6 mg/dL (0.6-1.4); POTASSIUM 3.6 mmol/L (3.5-5.1); PROTEIN TOTAL SERUM 5.8 g/dL (6.0-8.3)
[2017-02-19] MEDS ORDERED: LIBRIUM25 M1 PO (14:16)
[2017-02-19] MEDS ORDERED: NORVASC PO (14:19)
[2017-02-19] MEDS ORDERED: MULTI-VITAMIN1 EAC1 PO (14:20)
[2017-02-19] MEDS ORDERED: PROTONIX40 M1 (14:23)
[2017-02-19] MEDS ORDERED: HYDROCODON-ACE1 EAC9 PO (14:25)
== END 2017-02-19 16:51 | disposition home or self-care (01) | DRG 897 ==
LOC: CED 06:38 → CICCU3 13:45 → CEDOF 13:45 → CED 14:17 → CEDOF 14:17 → C5C 16:10 → CEDOF 16:10 → C5C 16:10 → CICCU3 02-14 21:15 → CICCU2 02-15 18:14 → C3A PCU 02-15 19:06
PROVIDERS: Family Medicine; Internal Medicine; Internal Medicine Gastroenterology; Internal Medicine Nephrology; Physician Assistant Medical; Student in an Organized Health Care Education/Training Program
PROC: 0DBE8ZX Excision of Large Intestine, Via Natural or Artificial Opening Endoscopic, Diagnostic (ICD-10-PCS; 2017-02-18)
PROC: 0DBK8ZX Excision of Ascending Colon, Via Natural or Artificial Opening Endoscopic, Diagnostic (ICD-10-PCS; principal; 2017-02-18 20:32)
PROC: 0DBN8ZX Excision of Sigmoid Colon, Via Natural or Artificial Opening Endoscopic, Diagnostic (ICD-10-PCS; 2017-02-18 20:32)
PROC: 0DBL8ZX Excision of Transverse Colon, Via Natural or Artificial Opening Endoscopic, Diagnostic (ICD-10-PCS; 2017-02-18 20:32)
DX: F10.239 Alcohol dependence with withdrawal, unspecified (principal); S12.200A Unspecified displaced fracture of third cervical vertebra, initial encounter for closed fracture; E87.1 Hypo-osmolality and hyponatremia; S12.300A Unspecified displaced fracture of fourth cervical vertebra, initial encounter for closed fracture; S12.400A Unspecified displaced fracture of fifth cervical vertebra, initial encounter for closed fracture; G40.509 Epileptic seizures related to external causes, not intractable, without status epilepticus; I10 Essential (primary) hypertension; Z87.11 Personal history of peptic ulcer disease; E87.6 Hypokalemia; F17.210 Nicotine dependence, cigarettes, uncomplicated; M54.2 Cervicalgia; V43.52XA Car driver injured in collision with other type car in traffic accident, initial encounter; D12.3 Benign neoplasm of transverse colon; D12.5 Benign neoplasm of sigmoid colon; D12.2 Benign neoplasm of ascending colon; Z71.41 Alcohol abuse counseling and surveillance of alcoholic; R20.0 Anesthesia of skin; D69.6 Thrombocytopenia, unspecified; D64.9 Anemia, unspecified; M47.9 Spondylosis, unspecified; Y90.0 Blood alcohol level of less than 20 mg/100 ml
CPT/HCPCS: 36415; 36600; 72125; 72128; 72141; 74177; 80048; 80053; 80076; 80307; 81003; 82150; 82550; 82553; 82607; 82746; 82803; 82947; 83605; 83690; 83735; 83930; 83935; 84132; 84300; 84443; 84484; 84550; 85025; 85027; 87040; 87177; 87209; 87493; 88305; 93005; 94760; 96361; 96365; 96366; 96375; 97162; 97165; 99285; C9113; G0480; J1885; J1956; J2060; J2250; J2270; J2405; J3411; J3420; J3475; J7042; Q9967

== ENCOUNTER 2017-03-17 17:34 | Emergency (ER) | payer OTHER ==
--- NOTE | ~2017-03-17 | EKG ---
PATIENT: YADIEL ANGELES UNIT #: [id number] Ventricular Rate: 111 BPM Atrial Rate: 111 BPM P-R Interval: 150 ms QRS Duration: 76 ms Q-T Interval: 340 ms QTC Calculation(Bezet): 462 ms P [place]: 56 degrees Calculated R [place]: 63 degrees Calculated T [place]: 55 degrees Diagnosis Line: Sinus tachycardia Diagnosis Line: Otherwise normal ECG Diagnosis Line: When compared with ECG of 13-FEB-2017 14:20, Diagnosis Line: T wave amplitude has decreased in Anterolateral Diagnosis Line: leads Diagnosis Line: Confirmed by OUSMANE CRUMP MD ([id number]) on Diagnosis Line: 03/18/2017 8:01:49 AM INTERPRETING MD: ALISIA BANSAL
--- NOTE | ~2017-03-17 | CR72 ---
[facility] A Service of [facility] & [facility] RADIOLOGY TEXT RESULTS PATIENT: YADIEL ANGELES LOCATION: [facility] : [birth year] UNIT #: [id number] AGE: [address]: Haydee Catalan MD SEX: M ORDER DR: [id number] [facility] [address] [place], [place] [address] [id number] E MR#: [id number] Acc #: [id number] NAME: YADIEL ANGELES. : 1960 SEX: M STUDY DATE/TIME: 03/17/2017 20:25 UNIT: [facility] ROOM: STUDY DESCRIPTION: CR Chest Single View Portable Attending Physician: Haydee Catalan M.D. Ordering Physician: Haydee Catalan M.D. Primary Care Physician: No Primary Care Physician MEDICAL IMAGING REPORT This report is preliminary unless electronic signature is present EXAM Frontal chest, 03/17/2017. INDICATIONS 56-year-old male with chest pain, shortness of air for 2-days. TECHNIQUE Frontal chest compared 01/11/2017. FINDINGS Cardiac silhouette unremarkable. The vascularity is normal and the lungs are clear. No pneumothorax. IMPRESSION 1. Negative frontal chest, no change. Dictated by... Js Guidry M.D. THIS IS AN ELECTRONICALLY VERIFIED REPORT Js Guidry M.D. at 03/17/2017 11:51 PM Matt TD: 03/17/2017 23:15 JOB #: [id number] MEDICAL IMAGING REPORT Page 1 of 1 COPY
[~2017-03-17 17:34] MED LIST changes: +HYDROCODON-ACE1 EAC9 PO; +MULTI-VITAMIN1 EAC1 PO; +NEXIUM20 MG PO; +NORVASC PO; +PROTONIX40 M1
[2017-03-17 21:07] LABS: BASOPHIL% 0.5 % (0-2.5); EOSINOPHIL% 0.3 % (0.0-7.0); HEMATOCRIT 48.3 % (38.0-50.0); HEMOGLOBIN 16.2 gm/dL (13.0-16.0); LYMPHOCYTE% 29.3 % (17.0-45.0); MEAN CELL VOLUME 87.9 FL (83-96); MEAN CORPUSCULAR HEMOGLOBIN 29.4 PG (28-34); MEAN CORPUSCULAR HGB CONC 33.5 g/dL (30-36); MEAN PLATELET VOLUME 7.6 FL (6.5-11.5); MONOCYTE# 0.6 X10e3 (0-1.0); MONOCYTE% 16.4 % (3.0-12.0); NEUTROPHIL# 1.9 X10e3 (1.5-7.1); NEUTROPHIL% 53.5 % (40-75); RED BLOOD COUNT 5.49 X10e (3.90-5.60); RED CELL DISTRIBUTION WIDTH 16.7 % (11.0-15.5); WHITE BLOOD COUNT 3.5 X10e3 (4.0-10.5)
[2017-03-17 21:09] LABS: DIFF IND YES; PLATELET COUNT 49 X10e3 (140-420)
[2017-03-17 21:23] LABS: PLATELET ESTIMATE DECREASED (NORMAL); RBC NORMAL YES
[2017-03-17 21:24] LABS: INR 1.2; PARTIAL THROMBOPLASTIN TIME 28.9 SECONDS (23.5-31.3); PROTHROMBIN TIME (PATIENT) 12.5 SECONDS (10.0-11.7)
[2017-03-17 21:33] LABS: ALBUMIN SERUM 4.2 g/dL (3.5-5.0); ALCOHOL BLOOD 6 mg/dL (0); ALKALINE PHOSPHATASE 194 U/L (32-92); ALT (SGPT) 55 U/L (10-40); AST (SGOT) 185 U/L (10-42); BILIRUBIN, DIRECT 0.6 mg/dL (0.0-0.2); BILIRUBIN,INDIRECT 1.9 mg/dL (0.0-0.9); BILIRUBIN,TOTAL 2.5 mg/dL (0.2-2.0); CALCIUM SERUM 8.7 mg/dL (8.4-10.2); CARBON DIOXIDE 27 mmol/L (22-31); CHLORIDE 84 mmol/L (100-111); CREATININE SERUM 0.6 mg/dL (0.6-1.4); GLUCOSE FASTING 110 mg/dL (70-110); PROTEIN TOTAL SERUM 7.7 g/dL (6.0-8.3); SODIUM 128 mmol/L (135-145)
[2017-03-17 21:36] LABS: BLOOD UREA NITROGEN <5 mg/dL (9-23); BUN/CREATININE RATIO 8.33
[2017-03-17 21:38] LABS: MAGNESIUM 0.9 mg/dL (1.6-3.0); POTASSIUM 2.5 mmol/L (3.5-5.1)
[2017-03-17 23:07] LABS: POC - CKMB <1.0 ng/mL (0.0-7.9); POC - TROPONIN <0.05 ng/mL (<=0.05)
== END 2017-03-18 01:18 | disposition home or self-care (01) ==
LOC: CED 17:34
PROVIDERS: Student in an Organized Health Care Education/Training Program
DX: R07.89 Other chest pain (principal); E87.6 Hypokalemia; E83.42 Hypomagnesemia; F10.10 Alcohol abuse, uncomplicated; K21.9 Gastro-esophageal reflux disease without esophagitis; F17.200 Nicotine dependence, unspecified, uncomplicated
CPT/HCPCS: 36415; 71010; 80048; 80076; 82553; 83735; 83880; 84484; 85025; 85610; 85730; 93005; 94640; 96365; 96366; 96375; 99285; C9113; G0480; J2270; J2405; J3475

== ENCOUNTER 2017-04-08 20:28 | Emergency (ER) | payer OTHER ==
[~2017-04-08] VITALS: Ht 177.8 cm; Wt 79.4 kg
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
[2017-04-08 22:08] LABS: BASOPHIL# 0.1 X10e3 (0-0.3); BASOPHIL% 1.3 % (0-2.5); EOSINOPHIL% 0.5 % (0.0-7.0); HEMATOCRIT 41.5 % (38.0-50.0); HEMOGLOBIN 13.8 gm/dL (13.0-16.0); LYMPHOCYTE# 1.3 X10e3 (1.0-3.5); LYMPHOCYTE% 26.1 % (17.0-45.0); MEAN CELL VOLUME 92.6 FL (83-96); MEAN CORPUSCULAR HEMOGLOBIN 30.7 PG (28-34); MEAN CORPUSCULAR HGB CONC 33.1 g/dL (30-36); MEAN PLATELET VOLUME 7.1 FL (6.5-11.5); MONOCYTE# 0.7 X10e3 (0-1.0); MONOCYTE% 13.6 % (3.0-12.0); NEUTROPHIL# 2.9 X10e3 (1.5-7.1); NEUTROPHIL% 58.5 % (40-75); PLATELET COUNT 264 X10e3 (140-420); RED BLOOD COUNT 4.48 X10e (3.90-5.60); RED CELL DISTRIBUTION WIDTH 19.4 % (11.0-15.5)
[2017-04-08 22:09] LABS: DIFF IND NO
[2017-04-08 22:43] LABS: BUN/CREATININE RATIO 11.66; CALCIUM SERUM 8.3 mg/dL (8.4-10.2); CREATININE SERUM 0.6 mg/dL (0.6-1.4); GLOM FILT RATE Estimated 113.2 mL/min (>60)
== END 2017-04-09 05:00 | disposition home or self-care (01) ==
LOC: CED 20:28
PROVIDERS: Emergency Medicine
DX: S42.292A Other displaced fracture of upper end of left humerus, initial encounter for closed fracture (principal); F10.129 Alcohol abuse with intoxication, unspecified; F17.210 Nicotine dependence, cigarettes, uncomplicated; W10.9XXA Fall (on) (from) unspecified stairs and steps, initial encounter
CPT/HCPCS: 72040; 73030; 80048; 85025; 96361; 96374; 99284; G0480; J1885; J3411; J3475